=== PATIENT | male | born 1985 | race Two or more races ===

== ENCOUNTER 2020-07-28 07:48 | Observation (INO) ==
[2020-07-28 08:00] VITALS: BMI 64.3
[2020-07-28] MEDS ORDERED: SODIUM CHLORIDE 1,000 ML IV STA ×2 (08:10→09:55)
[2020-07-28] MEDS ORDERED: HUMULIN R IVP STA (08:22)
[2020-07-28 08:30] LABS: BASOPHILS # (AUTO) 0.1 K/uL (0-0.2); BASOPHILS % (AUTO) 0.6 % (0.0-3.0); EOSINOPHILS # (AUTO) 0.2 K/ul (0.0-0.7); HEMATOCRIT 47.7 % (42.0-52.0); HEMOGLOBIN 15.9 g/dl (14.0-18.0); IMMATURE GRANULOCYTE % (AUTO) 0.2 % (0.0-5.0); LYMPHOCYTES % (AUTO) 36.7 (10.0-50.0); MEAN CORPUSCULAR HEMOGLOBIN 26.7 pg (27.0-31.0); MEAN CORPUSCULAR HGB CONC 33.3 (31.8-35.4); MEAN CORPUSCULAR VOLUME 80.2 fl (80.0-94.0); MONOCYTES # (AUTO) 0.7 K/uL (0.4-2.0); MONOCYTES % (AUTO) 5.8 (0-10); NEUTROPHILS # (AUTO) 6.7 K/ul (2.0-6.9); NEUTROPHILS % (AUTO) 54.7 % (42.2-75.2); PLATELET COUNT 293 10^3/uL (140-440); RDW COEFFICIENT OF VARIATION 13.3 % (11.6-14.8); RED BLOOD COUNT 5.95 10^6/ul (4.70-6.10)
[2020-07-28 08:39] LABS: ALBUMIN 4.22 g/dL (3.5-5.0); ALKALINE PHOSPHATASE 104.1 U/L (38-126); ASPARTATE AMINO TRANSFERASE 48.6 U/L (17-59); BLOOD UREA NITROGEN 11.8 mg/dL (9-20); CALCIUM 9.26 mg/dL (8.4-10.2); CARBON DIOXIDE 30.2 mmol/L (22-30.0); CHLORIDE 95.5 mmol/L (98-107); CREATININE 0.49 mg/dL (0.60-1.10); POTASSIUM 4.18 mmol/L (3.5-5.1); SODIUM 133.9 mmol/L (134.5-145); TOTAL PROTEIN 8.18 g/dL (6.3-8.2)
[2020-07-28] MEDS: CATAPRES PO ONE ×2 (08:40→08:47)
[2020-07-28 08:42] LABS: LYMPHOCYTES # (AUTO) 4.5 K/uL (0.60-3.4)
[2020-07-28 08:44] LABS: ALANINE AMINOTRANSFERASE 53.9 U/L (0-50)
[2020-07-28 08:48] LABS: BLOOD ALCOHOL < 10.0 mg/dL (0.0-50.0); GLUCOSE 537.5 mg/dL (74-106)
[2020-07-28] MEDS ORDERED: ROCEPHIN 1 GM/50 ML D5W 1 GM/50 ML BAG IV ONE (09:11)
[2020-07-28 09:17] LABS: BILIRUBIN,URINE Negative (NEGATIVE); CLARITY,URINE Clear (CLEAR); COLOR,URINE Yellow (YELLOW); GLUCOSE, URINE (UA) 2+ (NEGATIVE); KETONES,URINE Negative (NEGATIVE); LEUKOCYTE ESTERASE ,URINE Negative (NEGATIVE); NITRITE,URINE Negative (NEGATIVE); PROTEIN,URINE 1+ (NEGATIVE); URINE, BLOOD Trace-intact (NEGATIVE); UROBILINOGEN,URINE 0.2 (0.2)
[2020-07-28 09:23] LABS: URINE RBC, MICROSCOPIC 0-2 (0-2)
[2020-07-28 09:27] LABS: AMPHETAMINE SCREEN,URINE NEGATIVE (NEGATIVE); BARBITURATE SCREEN,URINE NEGATIVE (NEGATIVE); BENZODIAZEPINES SCREEN,URINE POSITIVE (NEGATIVE); CANNABINOID SCREEN,URINE POSITIVE (NEGATIVE); COCAIN SCREEN,URINE NEGATIVE (NEGATIVE); METHADONE URINE SCREEN NEGATIVE (NEGATIVE); METHAMPHETAMINES SCREEN,URINE NEGATIVE (NEGATIVE); OPIATE SCREEN,URINE NEGATIVE (NEGATIVE); OXYCODONE URINE SCREEN NEGATIVE (NEGATIVE); PHENCYCLIDINE SCREEN,URINE NEGATIVE (NEGATIVE); PROPOXYPHENE URINE SCREEN NEGATIVE (NEGATIVE); TRICYCLIC ANTIDEPRESSANTS URIN NEGATIVE (NEGATIVE)
--- NOTE | 2020-07-28 09:47 | DI ---
EXAM: Chest one view HISTORY: Leukocytosis COMPARISON: None TECHNIQUE: Single view of the chest was performed FINDINGS: Normal heart size. Normal mediastinal contour. Questionable central peribronchial thicken ing bilaterally. No consolidation. No pleural effusion or pneumothorax. No acute osseous abnormali ty. IMPRESSION: Questionable central peribronchial thickening bilaterally, which suggests airways infect ion/inflammation. No consolidation.
[2020-07-28] MEDS ORDERED: LIDOCAINE HCL 1% SDV IM STA (09:55)
[2020-07-28] MEDS ORDERED: ROCEPHIN 1 GM VIAL IM ONE (09:55)
[2020-07-28] MEDS ORDERED: ATROVENT HFA INHALER (PER PUFF-WITH SPACER) IH ONE (10:08)
[2020-07-28] MEDS ORDERED: ZITHROMAX PO ONE (10:08)
[2020-07-28] MEDS ORDERED: VENTOLIN HFA (PER PUFF-WITH SPACER) IH ONE (10:08)
[2020-07-28 10:09] LABS: BORDETELLA PARAPERTUSSIS (PCR) NOT DETECTED (NOT DETECT); BORDETELLA PERTUSSIS (PCR) NOT DETECTED (NOT DETECT); CHLAMYDIA PNEUMONIAE (PCR) NOT DETECTED (NOT DETECT); CORONAVIRUS 229E (PCR) NOT DETECTED (NOT DETECT); CORONAVIRUS HKU1 (PCR) NOT DETECTED (NOT DETECT); CORONAVIRUS NL63 (PCR) NOT DETECTED (NOT DETECT); CORONAVIRUS OC43 (PCR) NOT DETECTED (NOT DETECT); HUMAN METAPNEUMOVIRUS (PCR) NOT DETECTED (NOT DETECT); HUMAN RHINOVIRUS/ENTEROV (PCR) NOT DETECTED (NOT DETECT); INFLUENZA B (PCR) NOT DETECTED (NOT DETECT); MYCOPLASMA PNEUMONIAE (PCR) NOT DETECTED (NOT DETECT); PARAINFLUENZA VIRUS 1 (PCR) NOT DETECTED (NOT DETECT); PARAINFLUENZA VIRUS 2 (PCR) NOT DETECTED (NOT DETECT); PARAINFLUENZA VIRUS 3 (PCR) NOT DETECTED (NOT DETECT); PARAINFLUENZA VIRUS 4 (PCR) NOT DETECTED (NOT DETECT); RESPIRATORY SYNCYTIAL V (PCR) NOT DETECTED (NOT DETECT); SARS_COV_2 (PCR) NOT DETECTED (NOT DETECT)
--- NOTE | 2020-07-28 10:32 | ED.PDOC ---
General ED Provider: Dr. NOHELIA STEWART MD Chief Complaint: Diabetes Stated Complaint: elevated blood sugar x 2 weeks. Time Seen by Provider: 07/28/20 07:56 Mode of Arrival: Walk-In Information Source: Patient Exam Limitations: No limitations Primary Care Provider: ELADIA SANTIZO APRN, FNP- Nursing and Triage Documentation Reviewed and Agree: Yes Does patient meet sepsis criteria?: No System Inflammatory Response Syndrome: Not Applicable Sepsis Protocol: For patient's 13 years and over: Temp is 96.8 and below OR 101 and greater Pulse >90 BPM Resp >20/minute Acutely Altered Mental Status Are patient's symptoms suggestive of a new infection, such as: -Pneumonia -Skin, Soft Tissue -Endocarditis -UTI -Bone, Joint Infection -Implantable Device -Acute Abdominal Infection -Wound Infection -Meningitis -Blood Stream Catheter Infection -Unknown Respiratory Complaint Exam Respiratory Complaint/Exam Onset/Duration: 2 weeks of elevated blood sugar Symptoms Are: Still present Timing: Constant Initial Severity: Mild Current Severity: Moderate Location: Unknown (pt denied acute fever, chills, SOB or chest pain. penile yeast, worsening.) Aggravating: Reports None Alleviating: Reports None Associated Signs and Symptoms: Reports Increased urination History of Healthcare-Acquired Pneumonia: No Cardiac Risk Factors: Reports Smoking and Diabetes Tuberculosis Risk Factors: Reports Smoking Home Oxygen Use: No Recent Stress Test: No Recent Echo/LV Function: No Current Antibiotic Use: No Current Asthma Medication Use: No Respiratory Distress: None Inadequate Respiratory Effort: No Dysphagia Present: No Stridor Present: No JVD Present: No Accessory Muscle Use: No Retractions: Not Present Diminished Breath Sounds: No Sinus Tenderness: None Grunting Respirations: No Kussmaul Respirations: No Differential Diagnoses: Asthma, COPD Exacerbation, Pneumonia, SARS, Bronchitis, Bronchospasm and Diabetic Ketoacidosis Review of Systems Review Of Systems Constitutional: Reports No symptoms Eyes: Reports No symptoms Ears, Nose, Mouth, Throat: Reports No symptoms Respiratory: Reports No symptoms Cardiac: Reports No symptoms GI: Reports Nausea : Reports Burning Musculoskeletal: Reports No symptoms Skin: Reports Other (penile yeast, recurrent) Neurological: Reports No symptoms Endocrine: Reports No symptoms Hematologic/Lymphatic: Reports No symptoms All Other Systems: Reviewed and Negative [facility] Medical History (Updated 07/28/20 @ 10:34 by NOHELIA STEWART MD) Arthritis Asthma Cellulitis Elevated cholesterol Hypertension Type 2 diabetes mellitus Family History Mother Cancer 19 CHILD Asthma Social History Smoking and tobacco status: Current every day smoker Tobacco type: cigarettes Years smoked: 25 Quit status: considering quitting Second hand smoke exposure: Yes Alcohol intake: current Alcohol intake frequency: a few times a month Alcohol type: beer Substance use type: marijuana Mary/islam: NONE Special mary needs: No Agree to transfusion: Yes Adopted: No Caregiver/support person: No Foster care: No Household members: significant other, family and children Housing: house Lives independently: Yes Daycare: no daycare Number of children: 4 Number of grandchildren: 0 Highest education level completed: Associate degree: occupational, technical, vocational program Financial difficulty paying for basics: not very hard service: No Current occupational status: employed 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 Current occupational exposures/hazards: No Pets and animals: Yes Leisure activites: other History of recent travel: Yes (out of state) Sexually active: Yes Do you think of yourself as: straight/heterosexual Current gender identity: male Seatbelt use: always Helmet use: No 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 Water heater temperature set < 120 degrees: Yes Working smoke detector in home: Yes Fire extinguisher in home: No Carbon monoxide detector in home: Yes Firearms in home: No Surgical History Status post tonsillectomy Physical Exam Physical Exam Appearance: Reports Obese Ill-appearing: None Pain Distress: None Eyes: Reports DAMON, EOMI and Conjunctiva clear ENT: Reports Ears normal, Nose normal and Oropharynx normal Neck: Supple Respiratory: Reports Airway patent, Breath sounds equal and Rhonchi Cardiovascular: Reports No rub, No murmur and Tachycardia GI/: Reports Soft, Nontender, No masses, Bowel sounds normal and No Organo megaly Musculoskeletal: Reports Normal strength, ROM intact, No edema and No calf tenderness Skin: Reports Other (moderate penile prepuce and bobo yeast) Neurological: Reports Sensation intact, Motor intact, Reflexes intact, Cranial nerves intact, Alert and Oriented Psychiatric: Reports Affect appropriate and Mood appropriate Interpretation Radiology Interpretation Radiology Interpretation By: Radiologist Radiology Results: Positive Re-Evaluation Re-Evaluation Time of Re-Evaluation: 08:54 Status: Improved Vital Signs Stable: Yes Pain Level: 0 Lungs: Other (rhonchi mild) Skin: Warm and Dry Neuro: Alert and Oriented X3 CV: RRR Critical Care Note Critical Care Note Total Critical Care Time (mins): 30 Course Course Hematology/Chemistry: 07/28/20 08:24 07/28/20 08:24 Orders, Labs, Meds: Lab Review 07/28/20 07/28/20 07/28/20 08:10 08:10 08:24 WBC 12.20 H RBC 5.95 Hgb 15.9 Hct 47.7 MCV 80.2 MCH 26.7 L MCHC 33.3 RDW Coeff of Heather 13.3 Plt Count 293 Immature Gran % (Auto) 0.2 Neut % (Auto) 54.7 Lymph % (Auto) 36.7 [place] % (Auto) 5.8 Eos % (Auto) 2.0 Baso % (Auto) 0.6 Neut # (Auto) 6.7 Lymph # (Auto) 4.5 H [place] # (Auto) 0.7 Eos # (Auto) 0.2 Baso # (Auto) 0.1 Immature Gran # (Auto) 0.0 Sodium Potassium Chloride Carbon Dioxide Anion Gap BUN Creatinine Estimated GFR (MDRD) BUN/Creatinine Ratio Glucose Lactic Acid Calcium Total Bilirubin AST ALT Alkaline Phosphatase Troponin I Total Protein Albumin Globulin Albumin/Globulin Ratio Urine Color Yellow Urine Clarity Clear Urine pH 6.0 Ur Specific [place] 1.020 Urine Protein 1+ H Urine Glucose (UA) 2+ H Urine Ketones Negative Urine Blood Trace-intact H Urine Nitrite Negative Urine Bilirubin Negative Urine Urobilinogen 0.2 Ur Leukocyte Esterase Negative Urine Microscopic RBC 0-2 Ur Squamous Epith Cells 2-5 Urine Opiates Screen Negative Ur Oxycodone Screen Negative Urine Methadone Screen Negative Ur Propoxyphene Screen Negative Ur Barbiturates Screen Negative U Tricyclic Antidepress Negative Ur Phencyclidine Scrn Negative Ur Amphetamine Screen Negative U Methamphetamines Scrn Negative U Benzodiazepines Scrn Positive H Urine Cocaine Screen Negative U Cannabinoids Screen Positive H Plasma/Serum Alcohol Acetone, Qual 07/28/20 07/28/20 07/28/20 08:24 08:24 08:24 WBC RBC Hgb Hct MCV MCH MCHC RDW Coeff of Heather Plt Count Immature Gran % (Auto) Neut % (Auto) Lymph % (Auto) [place] % (Auto) Eos % (Auto) Baso % (Auto) Neut # (Auto) Lymph # (Auto) [place] # (Auto) Eos # (Auto) Baso # (Auto) Immature Gran # (Auto) Sodium 133.9 L Potassium 4.18 Chloride 95.5 L Carbon Dioxide 30.2 H Anion Gap 12.38 BUN 11.8 Creatinine 0.49 L Estimated GFR (MDRD) 192.00 BUN/Creatinine Ratio 24.08 Glucose 537.5 H* Lactic Acid Calcium 9.26 Total Bilirubin 0.50 AST 48.6 ALT 53.9 H Alkaline Phosphatase 104.1 Troponin I < 0.012 Total Protein 8.18 Albumin 4.22 Globulin 3.96 Albumin/Globulin Ratio 1.06 Urine Color Urine Clarity Urine pH Ur Specific [place] Urine Protein Urine Glucose (UA) Urine Ketones Urine Blood Urine Nitrite Urine Bilirubin Urine Urobilinogen Ur Leukocyte Esterase Urine Microscopic RBC Ur Squamous Epith Cells Urine Opiates Screen Ur Oxycodone Screen Urine Methadone Screen Ur Propoxyphene Screen Ur Barbiturates Screen U Tricyclic Antidepress Ur Phencyclidine Scrn Ur Amphetamine Screen U Methamphetamines Scrn U Benzodiazepines Scrn Urine Cocaine Screen U Cannabinoids Screen Plasma/Serum Alcohol < 10.0 Acetone, Qual None 07/28/20 08:32 WBC RBC Hgb Hct MCV MCH MCHC RDW Coeff of Heather Plt Count Immature Gran % (Auto) Neut % (Auto) Lymph % (Auto) [place] % (Auto) Eos % (Auto) Baso % (Auto) Neut # (Auto) Lymph # (Auto) [place] # (Auto) Eos # (Auto) Baso # (Auto) Immature Gran # (Auto) Sodium Potassium Chloride Carbon Dioxide Anion Gap BUN Creatinine Estimated GFR (MDRD) BUN/Creatinine Ratio Glucose Lactic Acid 3.61 H Calcium Total Bilirubin AST ALT Alkaline Phosphatase Troponin I Total Protein Albumin Globulin Albumin/Globulin Ratio Urine Color Urine Clarity Urine pH Ur Specific [place] Urine Protein Urine Glucose (UA) Urine Ketones Urine Blood Urine Nitrite Urine Bilirubin Urine Urobilinogen Ur Leukocyte Esterase Urine Microscopic RBC Ur Squamous Epith Cells Urine Opiates Screen Ur Oxycodone Screen Urine Methadone Screen Ur Propoxyphene Screen Ur Barbiturates Screen U Tricyclic Antidepress Ur Phencyclidine Scrn Ur Amphetamine Screen U Methamphetamines Scrn U Benzodiazepines Scrn Urine Cocaine Screen U Cannabinoids Screen Plasma/Serum Alcohol Acetone, Qual Orders Category Date Time Status EKG-(ED ONLY) Stat CARDIO 07/28/20 09:11 Completed METERED DOSE INHALATION Routine CARDIO 07/28/20 10:09 Ordered ED IV/MEDIPORT/POWERPORT .ONCE EMERGENCY 07/28/20 08:10 Active ACETONE, QUALITATIVE Stat LAB 07/28/20 08:24 Completed BLOOD ALCOHOL Stat LAB 07/28/20 08:24 Completed BLOOD CULTURE (ED ONLY) Stat LAB 07/28/20 10:03 Ordered CBC W/ AUTO DIFF Stat LAB 07/28/20 08:24 Completed COMPREHENSIVE METABOLIC PANEL Stat LAB 07/28/20 08:24 Completed DRUG SCREEN, URINE, RAPID Stat LAB 07/28/20 08:10 Completed LACTIC ACID Stat LAB 07/28/20 08:32 Completed RESPIRATORY PANEL 2.1 (PCR) Stat LAB 07/28/20 10:03 Received TROPONIN I Stat LAB 07/28/20 08:24 Completed URINALYSIS C & S IF INDICATED Stat LAB 07/28/20 08:10 Completed 0.9 % Sodium Chloride [Saline Flush] MEDS 07/28/20 08:10 Active 1 syr IVF PRN PRN Albuterol Inhaler(with Spacer) [Ventolin Hfa (Per Puff- MEDS 07/28/20 10:08 Discontinued with Spacer)] 2 puff IH ONCE ONE Azithromycin [Zithromax] MEDS 07/28/20 10:08 Discontinued 500 mg PO ONCE ONE Ceftriaxone 1 gm Vial [Rocephin 1 gm Vial] MEDS 07/28/20 09:55 Discontinued 1 gm IM ONCE ONE Clonidine HCl [Catapres] MEDS 07/28/20 08:24 Discontinued 0.2 mg PO ONCE ONE Insulin Regular, Human [Humulin R] MEDS 07/28/20 08:22 Discontinued 19 unit IVP ONCE STA Ipratropium Inhaler(Spacer) [Atrovent Hfa Inhaler (Per MEDS 07/28/20 10:08 Discontinued Puff-with Spacer)] 2 puff IH ONCE ONE Lidocaine HCl/Pf [Lidocaine HCl 1% Sdv] MEDS 07/28/20 09:55 Discontinued 2.1 ml IM ONCE STA Sodium Chloride 0.9% [Sodium Chloride] 1,000 ml MEDS 07/28/20 08:10 Discontinued IV BOLUS Sodium Chloride 0.9% [Sodium Chloride] 1,000 ml MEDS 07/28/20 09:55 Active IV BOLUS CHEST, 1V AP ONLY Stat RADS 07/28/20 09:11 Completed Medications Generic Name Dose Route Start Last Admin Trade Name Freshamir PRN Reason Stop Dose Admin Sodium Chloride 1,000 mls @ 1,000 mls/hr 07/28/20 09:55 Sodium Chloride IV 07/28/20 10:54 BOLUS STA Sodium Chloride 1 syr 07/28/20 08:10 0.9% Sodium Chloride 10 Ml Disp.Syrin IVF PRN PRN To flush IV Discontinued Medications Generic Name Dose Route Start Last Admin Trade Name Freq PRN Reason Stop Dose Admin Albuterol Sulfate 2 puff 07/28/20 10:08 Albuterol Sulfate (Ventolin Hfa) 18 Gm 1 Puff With Spacer IH 07/28/20 10:09 ONCE ONE Azithromycin 500 mg 07/28/20 10:08 Azithromycin 250 Mg Tablet PO 07/28/20 10:09 ONCE ONE Ceftriaxone Sodium 1 gm 07/28/20 09:55 Ceftriaxone 1 Gm Vial 1 Gm Vial IM 07/28/20 09:56 ONCE ONE Clonidine 0.2 mg 07/28/20 08:24 07/28/20 08:47 Clonidine Hcl 0.1 Mg Tablet PO 07/28/20 08:25 Not Given ONCE ONE Sodium Chloride 1,000 mls @ 1,000 mls/hr 07/28/20 08:10 07/28/20 08:43 Sodium Chloride IV 07/28/20 09:09 1,000 mls/hr BOLUS STA Administration Insulin Human Regular 19 unit 07/28/20 08:22 07/28/20 08:40 Insulin Regular, Human 100 Unit/Ml (3ml) Vial 0.1 unit/kg (19 unit) 07/28/20 08:23 19 unit IVP Administration ONCE STA Ipratropium [place] 2 puff 07/28/20 10:08 Ipratropium [place] 12.9 Gm Hfa Inhaler Per Puff With Spacer IH 07/28/20 10:09 ONCE ONE Lidocaine HCl 2.1 ml 07/28/20 09:55 Lidocaine Hcl/Pf 1% 5 Ml Vial IM 07/28/20 09:56 ONCE STA Vital Signs: Temp Pulse Resp BP Pulse Ox 07/28/20 08:44 126/83 07/28/20 07:54 96.8 F L 90 20 163/106 H 92 L Discharge Plan Discharge Patient Disposition: PLACED OBSERVATION Discharge Problem: Hyperglycemia, Yeast infection, Bronchitis Prescriptions: No Action (DME) blood-glucose meter 1 EACH misc 1 ea MC ONCE 1 Days Qty: 1 RF: 0 (DME) Blood Glucose Test 1 EACH strip 1 ea MC DAILY 30 Days Qty: 30 RF: 5 lancets [TRUEplus Lancets] 33 gauge misc See Rx Instructions .ROUTE .COMPLEX Qty: 100 RF: 0 (DME) pen needle, diabetic [BD Ultra-Fine Orig Pen Needle] 29 gauge x 1/2" needle 1 ea MC daily 32G 4mm 30 Days Qty: 100 RF: 5 insulin lispro [Humalog KwikPen Insulin] 100 unit/mL insulin pen See Rx Instructions .ROUTE .COMPLEX Qty: 15 RF: 0 imiquimod 5 % cream in packet 1 applic TOPICAL DAILY RF: 0 hydrochlorothiazide 25 mg tablet 25 mg PO QDAY Qty: 90 RF: 6 Lantus Solostar U-100 Insulin 100 unit/mL (3 mL) insulin pen 90 unit subcut nightly 30 Days Qty: 30 RF: 5 (DME) True Metrix Glucose Test Strip Strip See Rx Instructions .ROUTE .MEDSUPPLY Qty: 200 RF: 11 (DME) lancets [BD Ultra Fine Lancets] 33 gauge misc See Rx Instructions .ROUTE .MEDSUPPLY Qty: 100 RF: 6 metformin 1,000 mg tablet 1,000 mg PO BID Qty: 60 RF: 6 albuterol sulfate [Ventolin HFA] 90 mcg/actuation HFA aerosol inhaler 2 puff IH Q4-6H PRN (Reason: shortness of breath or wheezing) Qty: 18 RF: 6 lisinopril 40 mg tablet 40 mg PO QDAY Qty: 90 RF: 6 ibuprofen 800 mg tablet 800 mg PO TID PRN (Reason: pain) Qty: 90 RF: 2 ED Provider: NOHELIA STEWART Condition: Serious Physician Progress Note: []Pt was d/w Dr Del Castillo: for Observation. See admission orders.
[2020-07-28] MEDS ORDERED: DIFLUCAN PO ONE (10:45)
[2020-07-28] MEDS ORDERED: MOTRIN PO PRN (10:49)
[2020-07-28] MEDS: SODIUM CHLORIDE 1,000 ML IV SCH ×2 (10:54→20:44)
[2020-07-28] MEDS ORDERED: VENTOLIN HFA (PER PUFF-WITH SPACER) IH SCH (11:00)
[2020-07-28 11:05] LABS: ADENOVIRUS (PCR) NOT DETECTED (NOT DETECT)
--- NOTE | 2020-07-28 11:56 | PCM ---
Chief Complaint Chief Complaint: Elevated blood sugars, not feeling well over 2 weeks. History of Present Illness History of Present Illness: 35 yo male presented to ED 07/28/20 at 0756 with c/o elevated BG x 2 weeks. Walked into ED w/o limitations. Vitals temp 96.8, pulse 90, rr 20, bp 163/106 and O2 92% on RA. Repeat vitals at 0844 BP 126/83 and normal. ER noted that in addition to glucose, he has had some respiratory issues as well. Constant blood sugars elevated, mild to moderate, no acute fever/chills/SOA/Chest pain. He has reported penile rash that has been worsening over the last 1 week. No agg/ameliorating factors. increased urination noted. No recent abx use. Ddx considered asthma/copd exacerbation/CAP/SARS-COVID/Bronchitis and lesser DKA. ROS reviewed from ED provider, pertinent + include nausea, burning in epigastric and abdominal region, penile yeast. PFSH reviewed with history of arthritis, asthma, cellulitis, elevated cholesterol, HTN, DM2 IDDM, extreme obesity with BMI 64.4. Current every day smoker of tobacco and marijuana. May consider quitting in future. 4 children. Works, some recent travel to [place] for job. Exam in ED noted some rhonchi. Penile rash noted. Balanitis present. Labs showed WBC 12.20, hgb 15.9, hct 47.7, plt 293. Sodium 133.9, K+ 4.18, CL 95.5, co2 30.2, bun 11.8, cr 0.49, glucose 537.5. Lymphocytes elevated. Else normal differential on CBC. UA showed SG 1.020, protien 1+, glucose 2+, ketones negative, blood trace, micro rbc 0-2, squam 2-5. UDS + for Benzo and cannabinoids. Corrected [id number] Sarmiento/144 Joceline. Calcium was 9.26, AST 48.6, alt 53.9, Alk phos normal 104.1. Trop <0.012, alb 4.22. ETOH negative. Acetone negative. Lactic acid is elevated at 3.61. Biofire returned handy negative. BC were obtained. SIRS criteria were technically not met with only abnl finding was the WBC >12. I questioned the temp, it was recorded as inaccurate and they were rechecking. Repeat BP was reviewed and okay. Dr. Riggins contacted me this am and we agreed to observation. He noted that the patient has not been taking insulin. He has no hypoxia now. O2 in ED was reported at >96%. CXR showed IMPRESSION: Questionable central peribronchial thickening bilaterally, which suggests airways infection/inflammation. No consolidation. [place] body weight 146 Adjusted body weight 252 Fluid rate: 106-155ml/hr - Will run at midpoint at 125ml/hour. REVIEW OF SYMPTOMS: (Positives bolded) General: weight loss, fever, chills, night sweats, fatigue, appetite loss HEENT: blurry vision, eye pain, eye discharge, dry eyes, decreased vision, sore throat tinnitus, bloody nose, hearin gloss, sinus pain/pressure, ear pain/pressure. Respiratory: shortness of breath, cough, hemoptysis, wheezing, pleurisy, Cardiovascular: chest pain, PND, palpitation, edema, orthopnea, syncope, swelling of extremities Gastro: Nausea, vomiting, diarrhea, hematemesis, abdominal pain, constipation Genito: hematuria, dysuria, glycosuria, hesitancy, frequency, incontinence, Penis rash [place]: Arthralgia, myalgia, muscle weakness, joint swelling, NSAID use Skin: rash, pruritis, sores, nail changes, skin thickening, change in wart/mole, itching, rash, new lesions, pruritus, nail changes Neuro: Migraine, numbness, ataxia, tremor, vertigo, weakness, memory loss, Irritability, dizziness Endocrine: excessive thirst, polyuria, cold intolerance, heat intolerance, goiter, Hyperglycemia Psychiatric: depression, anxiety, anti-depressants, alcohol abuse, drug abuse, insomnia, change in sleep pattern and mood changes Heme/lymph: easy bruising, bleeding gums, blood clots, swollen glands, lymphedema, Allergic/immune: allergic rhinitis, hay fever, asthma, hives Vital Signs Temp Pulse Resp BP Pulse Ox 07/28/20 10:56 149/105 H 07/28/20 09:15 134/93 H 07/28/20 08:44 126/83 07/28/20 08:30 126/83 07/28/20 07:54 96.8 F L 90 20 163/106 H 92 L Constitutional: Appearance-No acute distress, Consistent with stated age. Orientation- Oriented x 3, alertGait-Normal pace, normal arm movement. Build and Nutrition-[morbid obesity] General- Patient is pleasant and cooperative with the interview and exam. Integumentary: General-No rashes, ulcers or lesions. Palpation- Normal skin moisture/turgor. Skin is warm to touch, appropriate. Capillary refill is normal bilateral Upper and lower extremity. No rash in the under skin follds of abdomen, axilla or under breast tissue. Scar along the anterior blunt hyperpigmented nodule/nummular lesion. Chronic. Head/Neck: Head- normocephalic and atraumatic. Neck- without visible/palpable lumps or pulsations. Palpation- No bony tenderness about head/neck along frontal, occipital, temporal, parietal, mastoid, jawline, zygoma, orbit or any other location. NO temporal artery tenderness. No TMJ tenderness. Neck Supple. Thyroid-No thyromegaly, no nodules Eye: Bilaterally PERRLA, EOMI. No discharge. Upper and lower eyelids are normal. Sclera/conjunctiva normal without discharge. Cornea is normal and clear. Lens is normal. Eyeball appears normal. No ciliary flushing, no conjunctival injection. ENMT: Pinna- normal without tenderness or erythema. External auditory canal Left- normal without erythema or discharge, no excessive cerumen. External auditory canal Right-normal without erythema or discharge, no excessive cerumen. TM left- Ely/pearly, normal light reflex and anatomy TM Right- Ely/pearly, normal light reflex and anatomy Hearing Assessment-normal to conversational speech. Nose and sinus- No sinus tenderness along frontal/maxillary region. E xternal appearance normal and midline. Nares- bilateral quiet airflow, no discharge. Nasal mucosa- No bleeding noted and no ulcerations observed. [place], moist. Turbinates non boggy. Lips- normal color, moist without cracks/lesions Oral Cavity/Palate- hard/soft palate intact without lesions, oral mucosa pink and moist. Tongue normal midline. Oropharynx- no pharyngeal erythema, Uvula midline. No post nasal drip. No exudate. Salivary glands- Non tender to palpation CHEST/LUNG: Inspection- symmetric chest wall no pectus deformity. Normal effort, no distress, no use of accessory muscles. Palpation- nontender sternum, ribline. No abnormal pulsations. Auscultation- Breath sounds coarse throughout all lung andrade. Tracheal sounds, bronchial sounds overlying sternum, Bronchovessicular sounds between scapulae posteriorly, vessicular breath sounds heard throughout periphery coarse and diminished. Adventitious sounds- Scattered wheezes, no rales, Scattered rhonchi. CARDIOVASCULAR: Carotid artery- normal, no bruits or abnormal pulsations. Jugular vein- no pulsations. Palpation/Percussion- Normal PMI, no palpable thrill Auscultation- Regular rate and rhythm. No murmur noted in sitting, supine positions. Extremities- no digital clubbing, cyanosis, edema, increased warmth. ABDOMEN: Inspection- normal and no visible pulsations. Normal contour. Auscultation- Bowel sounds normal, no abdominal bruits. Palpation/Percussion- soft, non-tender, no rebound tenderness, no rigidity (guarding), no jar tenderness, no masses. Liver-no hepatomegaly, Spleen no splenomegaly, Hernias- none. Rectal not examined. Peripheral Vascular: Upper extremity Left- Normal temperature with pink nailbeds and no ulcerations. Upper extremity Right- Normal temperature with pink nailbeds and no ulcerations. Lower extremity- Normal temperature with pink nailbeds and no ulcerations. DP pulses 2+ bilaterally. Pedal hair intact. Normal capillary refill. Edema- No edema. Musculoskeletal: Generalized-No generalized swelling or edema of extremities, no digital clubbing or cyanosis, neurovascularly intact all four extremities. Upper extremity- Symmetrical posture. No visible deformity. Normal sensation along medial and lateral upper extremity proximally and distally. NO tenderness overlying shoulder, lateral/medial epicondyle. Poultry [place]beaker 5/5 and strength 5/5 bilateral UE. Elbow palpated, no tenderness overlying olecranon. Normal supination, pronation to active/passive ROM and to resisted rotation. Bicep insertion/tricep insertion appear normal without obvious pathology. Rotator cuff evaluated and intact. Normal wrist ROM bilaterally. Normal hand movement, intrinsic muscles of hands normal. No tenderness to palpation of hands/wrists/elbows. Lower extremity- Hip: Not tender to palpation, no pain, no swelling, edema or erythema of surrounding tissue, normal strength and tone. Normal appearing hip ROM bilaterally without pain. Knee: Knee ROM normal. No tenderness overlying trochanters, no tenderness about patella, quad tendon, patellar tendon. No tenderness at tibial tuberosity. Ankle: normal ROM not tender to palpation along medial/lateral malleolus. Foot: Normal movement of toes, no tenderness bilateral feet/toes. Normal foot type. Spine/Ribs- No deformities, masses or tenderness, no known fractures, normal strength, Normal ROM. Normal stability No tenderness along C/T/L spine. Normal appearing ROM about spine. : Balanitis. Scrotum without abnl findings. Testicles non tender symmetrcial. White thick discharge in skin folds. Penis is retracted. Prominent suprapubic fat pad. No rash in abdominal fold. Neurological: General- Moves all 4 extremities symmetrically. Symmetrical face and body posture. Cranial nerves- individually evaluated II-XII and intact. PERRLA, Normal EOMI, visual/special senses appear intact, Face is symmetrical and normal sensation/movement, normal tongue, normal strength/posture of neck musculature. Reflexes- intact with DTR 2+ patellar, Achilles, bicep, brachial, tricep. Ankle clonus normal with 2 beats. Strength- 5/5 bilateral UE and LE. Soft touch- intact bilateral UE and LE. Temperature sensation- intact bilateral UE and LE. []Cerebellar testing-Rapid alternating movements intact. Heel blunt intact. Able to walk normal gait, normal heel toe walking. Balance- Romberg intact. Normal Walking, heel toe walking, tip toe and heel walking normal. Neuropsych: Oriented- Person, place, time. (AAOx3), Mood/affect- normal and congruent. Able to articulate well. Speech-Normal speech, normal rate, normal tone, normal use of language, volume and coherence. Thought content- normal with ability to perform basic computations and apply abstract thought/reason. Associations- intact, no SI/HI, no hallucinations, delusions, obsessions. Judgment/insight- Appropriate. Memory-Recall intact, remote and recent memory intact. Knowledge- Age appropriate fund of knowledge, concentration and attention span normal. Lymphatic: Head/Neck- normal size and non tender to palpation. Axillary- normal size and non tender to palpation. Femoral and Inguinal- normal size and non tender to palpation. Allergies Allergies Allergy/AdvReac Type Severity Reaction Status Date / Time No Known Allergies Allergy Verified 07/28/20 08:03 [facility] Medical History (Updated 07/28/20 @ 17:38 by ARNAV MARADIAGA MD) Anterolisthesis Arthritis Asthma Condyloma acuminatum DM2 (diabetes mellitus, type 2) Facet arthropathy, lumbar Genital warts Hypertension Lumbar stenosis Mixed hyperlipidemia Morbid obesity with BMI of 60.0-69.9, adult Smokes 1 pack of cigarettes per day Type 2 diabetes mellitus Surgical History (Updated 07/28/20 @ 12:30 by KEYSHAWN CLAUDIO, RN) No history of previous surgery Status post tonsillectomy Family History Mother Cancer 19 CHILD Asthma Social History (Updated 07/28/20 @ 12:31 by KEYSHAWN CLAUDIO, RN) Smoking and tobacco status: Current every day smoker Tobacco type: cigarettes Years smoked: 25 Tobacco: How many years used: 24 Quit status: considering quitting Second hand smoke exposure: Yes Alcohol intake: current Alcohol intake frequency: a few times a month Alcohol type: beer Substance use type: marijuana Mary/scientology: NONE Special mary needs: No Agree to transfusion: Yes Adopted: No Caregiver/support person: No Foster care: No Household members: significant other, family and children Housing: house Lives independently: Yes Daycare: no daycare Number of children: 4 Number of grandchildren: 0 Highest education level completed: Associate degree: occupational, technical, vocational program Financial difficulty paying for basics: not very hard service: No Current occupational status: employed 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 Current occupational exposures/hazards: No Pets and animals: Yes Leisure activites: other History of recent travel: Yes (out of state) Sexually active: Yes Do you think of yourself as: straight/heterosexual Current gender identity: male Seatbelt use: always Helmet use: No 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 Water heater temperature set < 120 degrees: Yes Working smoke detector in home: Yes Fire extinguisher in home: No Carbon monoxide detector in home: Yes Firearms in home: No Medications Medications: Medications Generic Name Dose Route Start Last Admin Trade Name Freq PRN Reason Stop Dose Admin Albuterol Sulfate 2 puff 07/28/20 14:00 Albuterol Sulfate (Ventolin Hfa) 18 Gm 1 Puff With Spacer IH RTQID LAURY Azithromycin 500 mg 07/29/20 09:00 Azithromycin 250 Mg Tablet PO 07/30/20 10:00 DAILY LAURY Hydrochlorothiazide 25 mg 07/29/20 09:00 Hydrochlorothiazide 25 Mg Tablet PO DAILY LAURY Sodium Chloride 1,000 mls @ 125 mls/hr 07/28/20 11:00 07/28/20 10:54 Sodium Chloride IV 125 mls/hr .Q8H LAURY Administration CEFTRIAXONE/D5W 1 GM PREMIX 1 gm in 50 mls @ 75 mls/hr 07/29/20 09:00 Rocephin 1 Gm/50 Ml D5w IV 07/30/20 10:00 DAILY LAURY Ibuprofen 800 mg 07/28/20 10:49 Ibuprofen 400 Mg Tablet PO TID PRN Pain Insulin Glargine 90 unit 07/28/20 21:00 Insulin Glargine,Hum.Rec.Anlog 100 Units/Ml SUBCUT BEDTIME LAURY Insulin Human Regular 0 unit 07/28/20 10:40 Insulin Regular, Human 100 Unit/Ml (3ml) Vial SUBCUT PRN PRN Hyperglycemia Protocol Ipratropium [place] 2 puff 07/28/20 14:00 Ipratropium [place] 12.9 Gm Hfa Inhaler Per Puff With Spacer IH RTQID [facility] Lisinopril 40 mg 07/29/20 09:00 Lisinopril 40 Mg Tablet PO DAILY [facility] Metformin HCl 1,000 mg 07/28/20 17:00 Metformin Hcl 500 Mg Tablet PO BIDWM [facility] Non-Formulary Medication 1 applic 07/29/20 09:00 Imiquimod TP DAILY [facility] Sodium Chloride 1 syr 07/28/20 08:10 0.9% Sodium Chloride 10 Ml Disp.Syrin IVF PRN PRN To flush IV Body Composition Height: 5 ft 7 in Weight: 411 lb 2 oz Body Mass Index (BMI): 64.3 Vital Signs Temperature: 96.8 F Pulse Rate: 90 Respiratory Rate: 20 Blood Pressure: 149/105 O2 Sat by Pulse Oximetry: 92 Lab/Tests/Diagnostic Imaging Lab/Tests/Diagnostic Imaging: Lab Review 07/28/20 07/28/20 07/28/20 08:10 08:10 08:24 WBC 12.20 H RBC 5.95 Hgb 15.9 Hct 47.7 MCV 80.2 MCH 26.7 L MCHC 33.3 RDW Coeff of Heather 13.3 Plt Count 293 Immature Gran % (Auto) 0.2 Neut % (Auto) 54.7 Lymph % (Auto) 36.7 [place] % (Auto) 5.8 Eos % (Auto) 2.0 Baso % (Auto) 0.6 Neut # (Auto) 6.7 Lymph # (Auto) 4.5 H [place] # (Auto) 0.7 Eos # (Auto) 0.2 Baso # (Auto) 0.1 Immature Gran # (Auto) 0.0 Sodium Potassium Chloride Carbon Dioxide Anion Gap BUN Creatinine Estimated GFR (MDRD) BUN/Creatinine Ratio Glucose Lactic Acid Calcium Total Bilirubin AST ALT Alkaline Phosphatase Troponin I Total Protein Albumin Globulin Albumin/Globulin Ratio Urine Color Yellow Urine Clarity Clear Urine pH 6.0 Ur Specific [place] 1.020 Urine Protein 1+ H Urine Glucose (UA) 2+ H Urine Ketones Negative Urine Blood Trace-intact H Urine Nitrite Negative Urine Bilirubin Negative Urine Urobilinogen 0.2 Ur Leukocyte Esterase Negative Urine Microscopic RBC 0-2 Ur Squamous Epith Cells 2-5 Urine Opiates Screen Negative Ur Oxycodone Screen Negative Urine Methadone Screen Negative Ur Propoxyphene Screen Negative Ur Barbiturates Screen Negative U Tricyclic Antidepress Negative Ur Phencyclidine Scrn Negative Ur Amphetamine Screen Negative U Methamphetamines Scrn Negative U Benzodiazepines Scrn Positive H Urine Cocaine Screen Negative U Cannabinoids Screen Positive H Plasma/Serum Alcohol Acetone, Qual Adenovirus (PCR) B. pertussis DNA (PCR) B.parapertussis DNA PCR C. pneumoniae DNA (PCR) Coronavirus OC43 (PCR) Coronavirus HKU1 (PCR) Coronavirus 229E (PCR) Coronavirus NL63 (PCR) Human Metapneumovir PCR Influenza Type A (PCR) Influenza B (RT-PCR) M. pneumoniae (PCR) Parainfluenza 1 (PCR) Parainfluenza 2 (PCR) Parainfluenza 3 (PCR) Parainfluenza 4 (PCR) RSV (PCR) Entero/Rhino (PCR) SARS-CoV-2 (PCR) 07/28/20 07/28/20 07/28/20 08:24 08:24 08:24 WBC RBC Hgb Hct MCV MCH MCHC RDW Coeff of Heather Plt Count Immature Gran % (Auto) Neut % (Auto) Lymph % (Auto) [place] % (Auto) Eos % (Auto) Baso % (Auto) Neut # (Auto) Lymph # (Auto) [place] # (Auto) Eos # (Auto) Baso # (Auto) Immature Gran # (Auto) Sodium 133.9 L Potassium 4.18 Chloride 95.5 L Carbon Dioxide 30.2 H Anion Gap 12.38 BUN 11.8 Creatinine 0.49 L Estimated GFR (MDRD) 192.00 BUN/Creatinine Ratio 24.08 Glucose 537.5 H* Lactic Acid Calcium 9.26 Total Bilirubin 0.50 AST 48.6 ALT 53.9 H Alkaline Phosphatase 104.1 Troponin I < 0.012 Total Protein 8.18 Albumin 4.22 Globulin 3.96 Albumin/Globulin Ratio 1.06 Urine Color Urine Clarity Urine pH Ur Specific [place] Urine Protein Urine Glucose (UA) Urine Ketones Urine Blood Urine Nitrite Urine Bilirubin Urine Urobilinogen Ur Leukocyte Esterase Urine Microscopic RBC Ur Squamous Epith Cells Urine Opiates Screen Ur Oxycodone Screen Urine Methadone Screen Ur Propoxyphene Screen Ur Barbiturates Screen U Tricyclic Antidepress Ur Phencyclidine Scrn Ur Amphetamine Screen U Methamphetamines Scrn U Benzodiazepines Scrn Urine Cocaine Screen U Cannabinoids Screen Plasma/Serum Alcohol < 10.0 Acetone, Qual None Adenovirus (PCR) B. pertussis DNA (PCR) B.parapertussis DNA PCR C. pneumoniae DNA (PCR) Coronavirus OC43 (PCR) Coronavirus HKU1 (PCR) Coronavirus 229E (PCR) Coronavirus NL63 (PCR) Human Metapneumovir PCR Influenza Type A (PCR) Influenza B (RT-PCR) M. pneumoniae (PCR) Parainfluenza 1 (PCR) Parainfluenza 2 (PCR) Parainfluenza 3 (PCR) Parainfluenza 4 (PCR) RSV (PCR) Entero/Rhino (PCR) SARS-CoV-2 (PCR) 07/28/20 07/28/20 08:32 10:03 WBC RBC Hgb Hct MCV MCH MCHC RDW Coeff of Heather Plt Count Immature Gran % (Auto) Neut % (Auto) Lymph % (Auto) [place] % (Auto) Eos % (Auto) Baso % (Auto) Neut # (Auto) Lymph # (Auto) [place] # (Auto) Eos # (Auto) Baso # (Auto) Immature Gran # (Auto) Sodium Potassium Chloride Carbon Dioxide Anion Gap BUN Creatinine Estimated GFR (MDRD) BUN/Creatinine Ratio Glucose Lactic Acid 3.61 H Calcium Total Bilirubin AST ALT Alkaline Phosphatase Troponin I Total Protein Albumin Globulin Albumin/Globulin Ratio Urine Color Urine Clarity Urine pH Ur Specific [place] Urine Protein Urine Glucose (UA) Urine Ketones Urine Blood Urine Nitrite Urine Bilirubin Urine Urobilinogen Ur Leukocyte Esterase Urine Microscopic RBC Ur Squamous Epith Cells Urine Opiates Screen Ur Oxycodone Screen Urine Methadone Screen Ur Propoxyphene Screen Ur Barbiturates Screen U Tricyclic Antidepress Ur Phencyclidine Scrn Ur Amphetamine Screen U Methamphetamines Scrn U Benzodiazepines Scrn Urine Cocaine Screen U Cannabinoids Screen Plasma/Serum Alcohol Acetone, Qual Adenovirus (PCR) Not detected B. pertussis DNA (PCR) Not detected B.parapertussis DNA PCR Not detected C. pneumoniae DNA (PCR) Not detected Coronavirus OC43 (PCR) Not detected Coronavirus HKU1 (PCR) Not detected Coronavirus 229E (PCR) Not detected Coronavirus NL63 (PCR) Not detected Human Metapneumovir PCR Not detected Influenza Type A (PCR) Not detected Influenza B (RT-PCR) Not detected M. pneumoniae (PCR) Not detected Parainfluenza 1 (PCR) Not detected Parainfluenza 2 (PCR) Not detected Parainfluenza 3 (PCR) Not detected Parainfluenza 4 (PCR) Not detected RSV (PCR) Not detected Entero/Rhino (PCR) Not detected SARS-CoV-2 (PCR) Not detected Orders Category Date Time Status EKG-(ED ONLY) Stat CARDIO 07/28/20 09:11 Completed METERED DOSE INHALATION Routine CARDIO 07/28/20 10:09 Completed METERED DOSE INHALATION Routine CARDIO 07/28/20 10:47 Ordered OXYGEN Routine CARDIO 07/28/20 10:40 Ordered ACTIVITY .Up ad Sheri CARE 07/28/20 10:35 Active GIVE HS SNACK 2100 CARE 07/28/20 10:40 Active INTAKE & OUTPUT Q8HR CARE 07/28/20 10:35 Active VITAL SIGNS Q8HR CARE 07/28/20 10:35 Active ADA 2200 JERONIMO DIET DIETARY 07/28/20 Lunch Ordered HS SNACK DIETARY 07/28/20 Dinner Ordered ED IV/MEDIPORT/POWERPORT .ONCE EMERGENCY 07/28/20 08:10 Active ACETONE, QUALITATIVE Stat LAB 07/28/20 08:24 Completed BLOOD ALCOHOL Stat LAB 07/28/20 08:24 Completed BLOOD CULTURE (ED ONLY) Stat LAB 07/28/20 10:24 Received CBC W/ AUTO DIFF DAILY@0600 LAB 07/29/20 06:00 Ordered CBC W/ AUTO DIFF DAILY@0600 LAB 07/30/20 06:00 Ordered CBC W/ AUTO DIFF Stat LAB 07/28/20 08:24 Completed COMPREHENSIVE METABOLIC PANEL DAILY@0600 LAB 07/29/20 06:00 Ordered COMPREHENSIVE METABOLIC PANEL DAILY@0600 LAB 07/30/20 06:00 Ordered COMPREHENSIVE METABOLIC PANEL Stat LAB 07/28/20 08:24 Completed DRUG SCREEN, URINE, RAPID Stat LAB 07/28/20 08:10 Completed LACTIC ACID Stat LAB 07/28/20 08:32 Completed RESPIRATORY PANEL 2.1 (PCR) Stat LAB 07/28/20 10:03 Completed TROPONIN I Stat LAB 07/28/20 08:24 Completed URINALYSIS C & S IF INDICATED Stat LAB 07/28/20 08:10 Completed 0.9 % Sodium Chloride [Saline Flush] MEDS 07/28/20 08:10 Active 1 syr IVF PRN PRN Albuterol Inhaler(with Spacer) [Ventolin Hfa (Per Puff- MEDS 07/28/20 10:08 D iscontinued with Spacer)] 2 puff IH ONCE ONE Albuterol Inhaler(with Spacer) [Ventolin Hfa (Per Puff- MEDS 07/28/20 11:00 Discontinued with Spacer)] 2 puff IH Q6H Albuterol Inhaler(with Spacer) [Ventolin Hfa (Per Puff- MEDS 07/28/20 14:00 Active with Spacer)] 2 puff IH RTQID Azithromycin [Zithromax] MEDS 07/29/20 09:00 Active 500 mg PO DAILY Azithromycin [Zithromax] MEDS 07/28/20 10:08 Discontinued 500 mg PO ONCE ONE Ceftriaxone 1 gm Vial [Rocephin 1 gm Vial] MEDS 07/28/20 09:55 Discontinued 1 gm IM ONCE ONE Ceftriaxone/D5w 1 gm Premix [Rocephin 1 gm/50 ml D5w] MEDS 07/29/20 09:00 Active 1 gm in 50 ml IV DAILY Clonidine HCl [Catapres] MEDS 07/28/20 08:24 Discontinued 0.2 mg PO ONCE ONE Fluconazole [Diflucan] MEDS 07/28/20 10:45 Discontinued 150 mg PO ONCE ONE Hydrochlorothiazide MEDS 07/29/20 09:00 Active 25 mg PO DAILY Ibuprofen [Motrin] MEDS 07/28/20 10:49 Active 800 mg PO TID PRN Insulin Glargine,Hum.rec.anlog [Lantus] MEDS 07/28/20 21:00 Active 90 unit SUBCUT BEDTIME Insulin Regular, Human [Humulin R] MEDS 07/28/20 08:22 Discontinued 19 unit IVP ONCE STA Insulin Regular, Human [Humulin R] MEDS 07/28/20 10:40 Active See Protocol SUBCUT PRN PRN Ipratropium Inhaler(Spacer) [Atrovent Hfa Inhaler (Per MEDS 07/28/20 10:08 Discontinued Puff-with Spacer)] 2 puff IH ONCE ONE Ipratropium Inhaler(Spacer) [Atrovent Hfa Inhaler (Per MEDS 07/28/20 12:00 Discontinued Puff-with Spacer)] 2 puff IH RTQ6H Ipratropium Inhaler(Spacer) [Atrovent Hfa Inhaler (Per MEDS 07/28/20 14:00 Active Puff-with Spacer)] 2 puff IH RTQID Lidocaine HCl/Pf [Lidocaine HCl 1% Sdv] MEDS 07/28/20 09:55 Discontinued 2.1 ml IM ONCE STA Lisinopril [Zestril] MEDS 07/29/20 09:00 Active 40 mg PO DAILY Metformin HCl [Glucophage] MEDS 07/28/20 17:00 Active 1,000 mg PO BIDWM Sodium Chloride 0.9% [Sodium Chloride] 1,000 ml MEDS 07/28/20 11:00 Active IV 125 mls/hr Sodium Chloride 0.9% [Sodium Chloride] 1,000 ml MEDS 07/28/20 08:10 Discontinued IV BOLUS Sodium Chloride 0.9% [Sodium Chloride] 1,000 ml MEDS 07/28/20 09:55 Discontinued IV BOLUS imiquimod MEDS 07/29/20 09:00 Active 1 applic TP DAILY RESUSCITATION STATUS Routine OTHERS 07/28/20 10:35 Ordered CHEST, 1V AP ONLY Stat RADS 07/28/20 09:11 Completed Medications Generic Name Dose Route Start Last Admin Trade Name Freq PRN Reason Stop Dose Admin Albuterol Sulfate 2 puff 07/28/20 14:00 Albuterol Sulfate (Ventolin Hfa) 18 Gm 1 Puff With Spacer IH RTQID LAURY Azithromycin 500 mg 07/29/20 09:00 Azithromycin 250 Mg Tablet PO 07/30/20 10:00 DAILY [facility] Hydrochlorothiazide 25 mg 07/29/20 09:00 Hydrochlorothiazide 25 Mg Tablet PO DAILY [facility] Sodium Chloride 1,000 mls @ 125 mls/hr 07/28/20 11:00 07/28/20 10:54 Sodium Chloride IV 125 mls/hr .Q8H LAURY Administration CEFTRIAXONE/D5W 1 GM PREMIX 1 gm in 50 mls @ 75 mls/hr 07/29/20 09:00 Rocephin 1 Gm/50 Ml D5w IV 07/30/20 10:00 DAILY [facility] Ibuprofen 800 mg 07/28/20 10:49 Ibuprofen 400 Mg Tablet PO TID PRN Pain Insulin Glargine 90 unit 07/28/20 21:00 Insulin Glargine,Hum.Rec.Anlog 100 Units/Ml SUBCUT BEDTIME [facility] Insulin Human Regular 0 unit 07/28/20 10:40 Insulin Regular, Human 100 Unit/Ml (3ml) Vial SUBCUT PRN PRN Hyperglycemia Protocol Ipratropium [place] 2 puff 07/28/20 14:00 Ipratropium [place] 12.9 Gm Hfa Inhaler Per Puff With Spacer IH RTQID [facility] Lisinopril 40 mg 07/29/20 09:00 Lisinopril 40 Mg Tablet PO DAILY [facility] Metformin HCl 1,000 mg 07/28/20 17:00 Metformin Hcl 500 Mg Tablet PO BIDWM [facility] Non-Formulary Medication 1 applic 07/29/20 09:00 Imiquimod TP DAILY [facility] Sodium Chloride 1 syr 07/28/20 08:10 0.9% Sodium Chloride 10 Ml Disp.Syrin IVF PRN PRN To flush IV Discontinued Medications Generic Name Dose Route Start Last Admin Trade Name Freq PRN Reason Stop Dose Admin Albuterol Sulfate 2 puff 07/28/20 10:08 07/28/20 10:36 Albuterol Sulfate (Ventolin Hfa) 18 Gm 1 Puff With Spacer IH 07/28/20 10:09 2 puff ONCE ONE Administration Albuterol Sulfate 2 puff 07/28/20 11:00 07/28/20 11:06 Albuterol Sulfate (Ventolin Hfa) 18 Gm 1 Puff With Spacer IH Not Given Q6H [facility] Azithromycin 500 mg 07/28/20 10:08 07/28/20 10:27 Azithromycin 250 Mg Tablet PO 07/28/20 10:09 500 mg ONCE ONE Administration Ceftriaxone Sodium 1 gm 07/28/20 09:55 07/28/20 10:27 Ceftriaxone 1 Gm Vial 1 Gm Vial IM 07/28/20 09:56 1 gm ONCE ONE Administration Clonidine 0.2 mg 07/28/20 08:24 07/28/20 08:47 Clonidine Hcl 0.1 Mg Tablet PO 07/28/20 08:25 Not Given ONCE ONE Fluconazole 150 mg 07/28/20 10:45 07/28/20 10:53 Fluconazole 150 Mg Tablet PO 07/28/20 10:46 150 mg ONCE ONE Administration Sodium Chloride 1,000 mls @ 1,000 mls/hr 07/28/20 08:10 07/28/20 08:43 Sodium Chloride IV 07/28/20 09:09 1,000 mls/hr BOLUS STA Administration Sodium Chloride 1,000 mls @ 1,000 mls/hr 07/28/20 09:55 07/28/20 10:27 Sodium Chloride IV 07/28/20 10:54 1,000 mls/hr BOLUS STA Administration Insulin Human Regular 19 unit 07/28/20 08:22 07/28/20 08:40 Insulin Regular, Human 100 Unit/Ml (3ml) Vial 0.1 unit/kg (19 unit) 07/28/20 08:23 19 unit IVP Administration ONCE STA Ipratropium [place] 2 puff 07/28/20 10:08 07/28/20 10:38 Ipratropium [place] 12.9 Gm Hfa Inhaler Per Puff With Spacer IH 07/28/20 10:09 2 puff ONCE ONE Administration Ipratropium [place] 2 puff 07/28/20 12:00 Ipratropium [place] 12.9 Gm Hfa Inhaler Per Puff With Spacer IH RTQ6H [facility] Lidocaine HCl 2.1 ml 07/28/20 09:55 07/28/20 10:27 Lidocaine Hcl/Pf 1% 5 Ml Vial IM 07/28/20 09:56 2.1 ml ONCE STA Administration IMAGING: IMPRESSION: Questionable central peribronchial thickening bilaterally, which suggests airways infection/inflammation. No consolidation. Assessment (1) COPD exacerbation: Status: Acute Code(s): J44.1 - Chronic obstructive pulmonary disease with (acute) exacerbation SNOMED Code(s): 404581292 (2) Candidiasis of penis: Status: Acute Code(s): B37.42 - Candidal balanitis SNOMED Code(s): 103049206 (3) Elevated lactic acid level: Status: Acute Code(s): R79.89 - Other specified abnormal findings of blood chemistry SNOMED Code(s): 7050761 (4) Hypoxia: Status: Acute Code(s): R09.02 - Hypoxemia SNOMED Code(s): 375682081 (5) Uncontrolled diabetes mellitus: Status: Acute Code(s): E11.65 - Type 2 diabetes mellitus with hyperglycemia SNOMED Code(s): 31402583 (6) Asthma: Status: None Code(s): J45.909 - Unspecified asthma, uncomplicated SNOMED Code(s): 219659616 (7) Mixed hyperlipidemia: Status: Acute Code(s): E78.2 - Mixed hyperlipidemia SNOMED Code(s): 470170412 (8) Leukocytosis: Status: Acute Code(s): D72.829 - Elevated white blood cell count, unspecified SNOMED Code(s): 316871283 Plan Plan: COPD/Asthma Exacerbation with Leukocytosis, Hypoxia and Elevated Lactic Acid Level: Suspect acute bronchitis with possibility of COPD exacerbation by history and exam. We reviewed smoking history. Smoking cessation and tobacco avoidance highly encouraged today (both active and passive). We reviewed GOLD criteria. Gold defines exacerbation of COPD as acute event leading to worsening of respiratory symptoms with 3 cardinal features: increased cough freq/severity, sputum production volume/quality, worsened Dyspnea. Patient has 3/3 features of this. Risk factors for exacerbations include advancing age, duration of COPD, history of abx use, prev hospitalization within past 12 months, mucus production, comorbidities to include heart disease, CHF, DM, and exposures. Respiratory infections are the most likely trigger in up to 70% of cases to include viral processes such as Rhino (warmer months), bobo, adeno, parainfluenza (cooler months), allergic process, viral/bacterial pneumonia. Studies have shown benefit to bronchodilators (grade 1B) and show reduced time to resolution of cough. Anticholinergic agents are often used in combination as studies show enhanced bronchodilation beyond that seen by either agent alone. Caution advised if any history of BPH or similar in male patients. Systemic glucocorticoids have been shown to have beneficial effect. Recommendations include dosing steroid equivalent to prednisone 40 mg daily x 5 days. However today his sugars are out of control and I want to control sugars a bit before hitting him hard with steroids. Inhaled GC are of minimal benefit in acute exacerbation, but should not be stopped. This may be a good idea as outpatient. We discussed that studies suggest use of abx is controversial but should be considered if patient has 2-3/3 cardinal features. Previously considered CRP >20 but this was not significant. These are recommended to be avoided for simple bronchitis. The patient/family voiced understanding. Common abx include doxycycline, FQ, 3rd gen Cephalosporin with or without macrolide. Discussed pros and cons of steroid use both injectable and oral forms. Discussed home use of inhaler and provided education on inhaler usage today. F/U in 1-2 weeks PRN if not improving. - Admit obs - telemetry - Albuterol q 4 hours - Ipratropium QID - Labs am CBC/CMP f/u with labs in am. - A1C in am as none in last 30 days. - Continue current abx Azithromycin 500 daily x 3 days - Continue current abx rocephin in hospital, will cover with cefdinir 300mg PO BID to complete 5 days. - Tobacco avoidance d/w patient. - DVT prophy - Pneumonia vaccine encouraged if not done in last 5 years. - Mucinex can be of benefit R/B/A d/w patient. - Allergy recommendations discussed. - Handwashing discussed/encouraged - IV fluids NS 125ml/hour. Uncontrolled IDDM: Chronic Diabetes. Hyperglycemia, non compliance with regimen. I will increase his basal insulin from 90 units at night to 100 units. We will use sliding scale insulin and consider adjusting up tomorrow based on 24 hours of total insulin needs. We need to titrate medications to attain better glucose control. Reviewed need for outpatient blood glucose logs. Requested to bring to each future visit. No a1c in last 90 days. Last one was 11.25 on 04/09/20. Metformin of ?benefit at that time with A1C 11.25. Needs more insulin. We have reviewed medications today. Discussed SE. Reviewed pneumonia vaccine guidelines. Any tobacco should be avoided. R/B/A to statins d/w patient. Discussed moderate to high potency should be used depending on ASCVD risk score. We reviewed current status of nephropathy, Retinopathy, Neuropathy. Foot health reviewed and recommended foot evaluation with each OV. Discussed need to f/u with optometry/ ophthalmology annually to eval for DM nephropathy. Reviewed most recent A1C. Recommend q 3 month monitoring as an outpatient until stable then q 4-6 after that. Average goal for most patients is <7% for a1c. However, some patients may benefit from <8% and even still some with reduced life expectancy no A1C goal may be recommended. Discussed typical goals for this patient based on age/medical problems/Accord trial data and recent ACP recommendations. Discussed Hyper/hypoglycemia. Reviewed s/sx of each. Discussed ASA, discussed neville-I/ARB, discussed statins. - Goal BP <140/90 - Moderate to High potency statin d/w patient based on ACC/AHA - Benefits of metformin/Jardiance/farxiga d/w patient. Should not use in DM 1. - Good foot health discussed, appropriate shoes encouraged. - Monitor blood sugars as encouraged and bring log to future meetings. - Weight control discussed with patient. Initial Goal for all patient is BMI <30 and for most patients <60 yr old Goal BMI 19-24.9. - Work on regular exercise and diet to keep BMI in appropriate range with initial goal <30. Exercise can help with glycemic control. - Most recent labs reviewed with patient: New labs ordered as appropriate. (see orders) - Referral to Diabetic Education department as an outpatient - Meds as listed Reviewed R/B/A and SE of listed agents. *Lantus to 100 units qhs *Novolog in hospital per slidng scale. Morbid Obesity BMI 64.4: Federal guidelines recommend that people under the age of 65 should have a BMI of 18.5 -24.9 and people age 65 and older should have a BMI of 23-30. Morbid obesity is defined as >100 lb overweight or BMI >40. The patient BMI is outside the recommended range and we recommended/discussed today to utilize a diet/exercise program to get back into the appropriate range. Today we encouraged roughly a 1 lb per week weight loss with initial goal of 5% weight loss. The initial step is to document everything that is consumed into a food diary. Studies have shown that patients can lose up to 2x the weight by keeping track of foods. We discussed BEE today and discussed reasonable goal to realize weight loss. Discussed if eating out for a meal, consider cutting food in half and placing into to-go container. Individually portion any foods coming into the home based on package. Consider using smaller plates. Portion plates reviewed and discussed with patient. Consider drinking 12 oz of water 30 minutes before meal as way to suppress appetite. Cut back on soft drinks/juices. Discussed 1 can of regular soft drink has roughly 150-170 Calories per day. Increase exercise as able. It is recommended to try to exercise minimum 10 minutes 5 days per week. The goal over the next 2-4 weeks is to walk 30 minutes per day 5 days per week at pace difficult to hold conversation. Medications that may provide some benefit to weight loss include metformin, topamax, phentermine, Qsymia,Belviq (lorcaserin), Contrave (Buproprion/naltrexone) and a few others for Binge eating. Also discussed some of the FAD diets and recommended general portion reduction instead of special dietary changes. Reviewed several of the diabetic medications that have secondary benefits of weight loss. Apps that may be of benefit include [employer], Lose it. Healthier choices included fruits/grains/nuts instead of processed food.Offered referral to batterboard setter and bariatrics. Tobacco use: Tobacco Cessation discussed today for 2 minutes. We reviewed lifestyle choices and discussed quitting. Ready to quit status discussed. The risks and hazards of continued tobacco abuse were discussed with the patient today and total tobacco cessation as recommended. It was clearly and unambiguously explained that continued tobacco usage will adversely affect overall morbidity and mortality of the patient. Patient was informed that tobacco use can lead to numerous cancers, worsening of cardiovascular and pulmonary systems and that lung damage is often permanent and irreversible. I advised the patient to inform me if any further assistance is requested, as we can offer counseling services, nicotine replacement inhaled, patch, lozenge, gum, or prescription medications to include Chantix or Wellbutrin for assistance. I will reassess the interest in tobacco cessation at the next and all subsequent visits. - Patient declined patches in hospital. DVT Prophy: Despite BMI >60 we will use lovenox 40mg for prophylaxis dosing. - 40mg subcutaneous GI prophy: None Non Compliant: I encouraged the patient in unambiguous language to consider the disease process and the treatment options offered. Treatments are designed to improve problems or to reduce bad outcomes and sometimes even . Discussed to take meds as recommended. If issues please call or return to office to discuss. If there are yoder issues, contact clinic. If you cannot get to appt, we will get a 30 day supply to allow you to make it to office. Not taking meds, not following through with labs, not following through with specialist evaluation can lead to worsening condition, worse outcomes and possibly . If your insurance will not pay for a test/med/lab/etc., this does not mean that you do not need it. We may need to find other avenues to include small pay for the item. Patient voiced understanding. Discussed letters may be sent out to patients exhibiting non complaint behavior, discussing the importance of following medical recommendations. - Make sure not to run out of meds. Disposition: At this time patient did not meet SIRS criteria and has e/o hyperglycemia, leukocytosis and COPD exacerbation/asthma exacerbation. total time today 72 minutes face to face, talking with ER doctor, nursing, review labs, imaging, patient discussion. Not including documentation. Total estimated length of stay is 24-48 hours. F/U with patient in am room 106.
[2020-07-28] MEDS ORDERED: ATROVENT HFA INHALER (PER PUFF-WITH SPACER) IH SCH (12:00)
[2020-07-28] MEDS: VENTOLIN HFA (PER PUFF-WITH SPACER) IH SCH ×2 (14:07→20:00)
[2020-07-28] MEDS: ATROVENT HFA INHALER (PER PUFF-WITH SPACER) IH SCH ×2 (14:08→20:10)
[2020-07-28] MEDS: LOTRIMIN TP SCH ×2 (14:19→20:38)
[2020-07-28] MEDS: LOVENOX SUBCUT SCH (14:20)
[2020-07-28] MEDS: GLUCOPHAGE PO SCH (17:44)
[2020-07-28] MEDS: HUMULIN R SUBCUT PRN ×2 (18:00→20:42)
[2020-07-28] MEDS ORDERED: LANTUS SUBCUT SCH ×2 (21:00)
[2020-07-29] MEDS: ATROVENT HFA INHALER (PER PUFF-WITH SPACER) IH SCH ×2 (04:50→10:35)
[2020-07-29] MEDS: VENTOLIN HFA (PER PUFF-WITH SPACER) IH SCH ×2 (04:50→10:35)
[2020-07-29] MEDS: SODIUM CHLORIDE 1,000 ML IV SCH (05:05)
[2020-07-29 05:14] LABS: BASOPHILS # (AUTO) 0.1 K/uL (0-0.2); BASOPHILS % (AUTO) 0.5 % (0.0-3.0); EOSINOPHILS # (AUTO) 0.2 K/ul (0.0-0.7); EOSINOPHILS % (AUTO) 2.2 % (0.0-7.0); HEMATOCRIT 46.6 % (42.0-52.0); HEMOGLOBIN 15.1 g/dl (14.0-18.0); IMMATURE GRANULOCYTE % (AUTO) 0.2 % (0.0-5.0); LYMPHOCYTES # (AUTO) 2.9 K/uL (0.60-3.4); LYMPHOCYTES % (AUTO) 28.3 (10.0-50.0); MEAN CORPUSCULAR HEMOGLOBIN 26.4 pg (27.0-31.0); MEAN CORPUSCULAR HGB CONC 32.4 (31.8-35.4); MEAN CORPUSCULAR VOLUME 81.5 fl (80.0-94.0); MONOCYTES # (AUTO) 0.5 K/uL (0.4-2.0); MONOCYTES % (AUTO) 4.6 (0-10); NEUTROPHILS # (AUTO) 6.5 K/ul (2.0-6.9); NEUTROPHILS % (AUTO) 64.2 % (42.2-75.2); PLATELET COUNT 263 10^3/uL (140-440); RDW COEFFICIENT OF VARIATION 13.3 % (11.6-14.8); RED BLOOD COUNT 5.72 10^6/ul (4.70-6.10); WHITE BLOOD COUNT 10.17 K/ul (4.2-10.2)
[2020-07-29 05:36] LABS: ALANINE AMINOTRANSFERASE 63.6 U/L (0-50); ALBUMIN 3.74 g/dL (3.5-5.0); ASPARTATE AMINO TRANSFERASE 44.5 U/L (17-59); BILIRUBIN,TOTAL 0.44 mg/dL (0.2-1.3); BLOOD UREA NITROGEN 9.5 mg/dL (9-20); CALCIUM 8.51 mg/dL (8.4-10.2); CARBON DIOXIDE 27.2 mmol/L (22-30.0); CHLORIDE 99.7 mmol/L (98-107); CREATININE 0.36 mg/dL (0.60-1.10); GLUCOSE 318.6 mg/dL (74-106); POTASSIUM 4.37 mmol/L (3.5-5.1); SODIUM 133.3 mmol/L (134.5-145); TOTAL PROTEIN 7.55 g/dL (6.3-8.2)
[2020-07-29] MEDS: HUMULIN R SUBCUT PRN (06:07)
[2020-07-29] MEDS ORDERED: ZITHROMAX PO SCH (09:00)
[2020-07-29] MEDS ORDERED: NON-FORMULARY MEDICATION (Imiquimod 5 % cream in packet) TP SCH (09:00)
[2020-07-29] MEDS ORDERED: ZESTRIL PO SCH (09:00)
[2020-07-29] MEDS ORDERED: HYDROCHLOROTHIAZIDE PO SCH (09:00)
[2020-07-29] MEDS ORDERED: ROCEPHIN 1 GM/50 ML D5W 1 GM/50 ML BAG IV SCH (09:00)
[2020-07-29] MEDS ORDERED: ZITHROMAX 500 MG in SODIUM CHLORIDE 250 ML IV SCH (09:00)
[2020-07-29] MEDS: LOVENOX SUBCUT SCH (09:10)
[2020-07-29] MEDS: GLUCOPHAGE PO SCH (09:10)
[2020-07-29] MEDS: LOTRIMIN TP SCH (09:10)
[2020-07-29 09:51] VITALS: BP 124/68; TEMP 97.7
--- NOTE | 2020-07-29 12:51 | PCM.DC ---
Final Diagnosis: Hyperglycemia COPD Exacerbation/Asthma w/ Hypoxia Candidiasis Penis Morbid Obesity BMI 64.4 Uncontrolled diabetes Mixed hyperlipidemia Leukocytosis (1) COPD exacerbation: Status: Acute Code(s): J44.1 - Chronic obstructive pulmonary disease with (acute) exacerbation SNOMED Code(s): 686036566 (2) Candidiasis of penis: Status: Acute Code(s): B37.42 - Candidal balanitis SNOMED Code(s): 157193932 (3) Elevated lactic acid level: Status: Acute Code(s): R79.89 - Other specified abnormal findings of blood chemistry SNOMED Code(s): 0790354 (4) Hypoxia: Status: Acute Code(s): R09.02 - Hypoxemia SNOMED Code(s): 992616380 (5) Uncontrolled diabetes mellitus: Status: Acute Code(s): E11.65 - Type 2 diabetes mellitus with hyperglycemia SNOMED Code(s): 70193416 (6) Asthma: Status: None Code(s): J45.909 - Unspecified asthma, uncomplicated SNOMED Code(s): 414508029 (7) Mixed hyperlipidemia: Status: Acute Code(s): E78.2 - Mixed hyperlipidemia SNOMED Code(s): 477603308 (8) Leukocytosis: Status: Acute Code(s): D72.829 - Elevated white blood cell count, unspecified SNOMED Code(s): 165521535 Reason for Hospitalization: Hyperglycemia, Bronchitis/hypoxia and leukocytosis Prognosis at Discharge: Good. Back to baseline state. Blood glucose remained elevated but improved. Hypoxia improved. Did not qualify for oxygen. Completed 2/5 days of antibiotics (2/3 azithromycin 500mg, 2/5 cephalosporin). Condition at Discharge: Back to baseline state. Patient ready to go home. Maximized health through hospitalization. He is ready to go home. Health delaney condition improved, breathing improved. Medications at Discharge: Ambulatory Orders Medication Instructions Recorded Blood Glucose Test #30 strip 10/25/18 blood-glucose meter #1 ea 10/25/18 lancets 33 gauge See Rx Instructions .ROUTE 05/22/19 .COMPLEX #100 each albuterol sulfate 90 mcg/actuation 2 puff IH Q4-6H PRN #18 gm 07/04/19 aerosol inhaler hydrochlorothiazide 25 mg tablet 25 mg PO QDAY #90 tab 12/19/19 ibuprofen 800 mg tablet 800 mg PO TID PRN #90 tab 04/09/20 lisinopril 40 mg tablet 40 mg PO QDAY #90 tab 04/09/20 pen needle, diabetic 29 gauge x #100 each 05/04/20 1/2" blood sugar diagnostic #200 ea 05/11/20 lancets 33 gauge #100 each 05/11/20 metformin 1,000 mg tablet 1,000 mg PO BID #60 tab 05/11/20 imiquimod 1 applic TOPICAL DAILY 07/28/20 Lantus Solostar U-100 Insulin 110 unit SUBCUT nightly 30 Days 07/29/20 #30 ml azithromycin 500 mg PO ONCE #2 tab 07/29/20 cefdinir 300 mg PO BID 3 Days #6 cap 07/29/20 clotrimazole 1 applic TOPICAL BID 7 Days #90 g 07/29/20 fluconazole 150 mg PO ONCE #1 tab 07/29/20 insulin lispro [Humalog KwikPen See Rx Instructions .ROUTE 07/29/20 Insulin] .COMPLEX #15 ml varenicline [Chantix Starting See Rx Instructions .ROUTE 07/29/20 Month Box] .COMPLEX #53 ea Lab/Diagnostics: Laboratory Last Values WBC 10.17 K/ul (4.2-10.2) 07/29/20 04:47 RBC 5.72 10^6/ul (4.70-6.10) 07/29/20 04:47 Hgb 15.1 g/dl (14.0-18.0) 07/29/20 04:47 Hct 46.6 % (42.0-52.0) 07/29/20 04:47 MCV 81.5 fl (80.0-94.0) 07/29/20 04:47 MCH 26.4 pg (27.0-31.0) L 07/29/20 04:47 MCHC 32.4 (31.8-35.4) 07/29/20 04:47 RDW Coeff of Heather 13.3 % (11.6-14.8) 07/29/20 04:47 Plt Count 263 10^3/uL (140-440) 07/29/20 04:47 Immature Gran % (Auto) 0.2 % (0.0-5.0) 07/29/20 04:47 Neut % (Auto) 64.2 % (42.2-75.2) 07/29/20 04:47 Lymph % (Auto) 28.3 (10.0-50.0) 07/29/20 04:47 Bryan % (Auto) 4.6 (0-10) 07/29/20 04:47 Eos % (Auto) 2.2 % (0.0-7.0) 07/29/20 04:47 Baso % (Auto) 0.5 % (0.0-3.0) 07/29/20 04:47 Neut # (Auto) 6.5 K/ul (2.0-6.9) 07/29/20 04:47 Lymph # (Auto) 2.9 K/uL (0.60-3.4) 07/29/20 04:47 Bryan # (Auto) 0.5 K/uL (0.4-2.0) 07/29/20 04:47 Eos # (Auto) 0.2 K/ul (0.0-0.7) 07/29/20 04:47 Baso # (Auto) 0.1 K/uL (0-0.2) 07/29/20 04:47 Immature Gran # (Auto) 0.0 (0.0-1.0) 07/29/20 04:47 Sodium 133.3 mmol/L (134.5-145) L 07/29/20 04:47 Potassium 4.37 mmol/L (3.5-5.1) 07/29/20 04:47 Chloride 99.7 mmol/L (98-107) 07/29/20 04:47 Carbon Dioxide 27.2 mmol/L (22-30.0) 07/29/20 04:47 Anion Gap 10.77 07/29/20 04:47 BUN 9.5 mg/dL (9-20) 07/29/20 04:47 Creatinine 0.36 mg/dL (0.60-1.10) L 07/29/20 04:47 Estimated GFR (MDRD) 273.00 mL/min 07/29/20 04:47 BUN/Creatinine Ratio 26.38 07/29/20 04:47 Glucose 318.6 mg/dL (74-106) H D 07/29/20 04:47 Hemoglobin A1c 13.47 (4.0-6.0) H D 07/29/20 04:47 Lactic Acid 3.61 mmol/L (0.7-2.1) H 07/28/20 08:32 Calcium 8.51 mg/dL (8.4-10.2) 07/29/20 04:47 Total Bilirubin 0.44 mg/dL (0.2-1.3) 07/29/20 04:47 AST 44.5 U/L (17-59) 07/29/20 04:47 ALT 63.6 U/L (0-50) H 07/29/20 04:47 Alkaline Phosphatase 89.0 U/L (38-126) 07/29/20 04:47 Troponin I < 0.012 ng/ml (0.0000-0.120) 07/28/20 08:24 Total Protein 7.55 g/dL (6.3-8.2) 07/29/20 04:47 Albumin 3.74 g/dL (3.5-5.0) 07/29/20 04:47 Globulin 3.81 07/29/20 04:47 Albumin/Globulin Ratio 0.98 07/29/20 04:47 Urine Color Yellow (YELLOW) 07/28/20 08:10 Urine Clarity Clear (CLEAR) 07/28/20 08:10 Urine pH 6.0 (5-9) 07/28/20 08:10 Ur Specific [place] 1.020 (1.005-1.030) 07/28/20 08:10 Urine Protein 1+ (NEGATIVE) H 07/28/20 08:10 Urine Glucose (UA) 2+ (NEGATIVE) H 07/28/20 08:10 Urine Ketones Negative (NEGATIVE) 07/28/20 08:10 Urine Blood Trace-intact (NEGATIVE) H 07/28/20 08:10 Urine Nitrite Negative (NEGATIVE) 07/28/20 08:10 Urine Bilirubin Negative (NEGATIVE) 07/28/20 08:10 Urine Urobilinogen 0.2 (0.2) 07/28/20 08:10 Ur Leukocyte Esterase Negative (NEGATIVE) 07/28/20 08:10 Urine Microscopic RBC 0-2 (0-2) 07/28/20 08:10 Ur Squamous Epith Cells 2-5 (0-5) 07/28/20 08:10 Urine Opiates Screen Negative (NEGATIVE) 07/28/20 08:10 Ur Oxycodone Screen Negative (NEGATIVE) 07/28/20 08:10 Urine Methadone Screen Negative (NEGATIVE) 07/28/20 08:10 Ur Propoxyphene Screen Negative (NEGATIVE) 07/28/20 08:10 Ur Barbiturates Screen Negative (NEGATIVE) 07/28/20 08:10 U Tricyclic Antidepress Negative (NEGATIVE) 07/28/20 08:10 Ur Phencyclidine Scrn Negative (NEGATIVE) 07/28/20 08:10 Ur Amphetamine Screen Negative (NEGATIVE) 07/28/20 08:10 U Methamphetamines Scrn Negative (NEGATIVE) 07/28/20 08:10 U Benzodiazepines Scrn Positive (NEGATIVE) H 07/28/20 08:10 Urine Cocaine Screen Negative (NEGATIVE) 07/28/20 08:10 U Cannabinoids Screen Positive (NEGATIVE) H 07/28/20 08:10 Plasma/Serum Alcohol < 10.0 mg/dL (0.0-50.0) 07/28/20 08:24 Acetone, Qual None (NONE) 07/28/20 08:24 Adenovirus (PCR) Not detected (NOT DETECT) 07/28/20 10:03 B. pertussis DNA (PCR) Not detected (NOT DETECT) 07/28/20 10:03 B.parapertussis DNA PCR Not detected (NOT DETECT) 07/28/20 10:03 C. pneumoniae DNA (PCR) Not detected (NOT DETECT) 07/28/20 10:03 Coronavirus OC43 (PCR) Not detected (NOT DETECT) 07/28/20 10:03 Coronavirus HKU1 (PCR) Not detected (NOT DETECT) 07/28/20 10:03 Coronavirus 229E (PCR) Not detected (NOT DETECT) 07/28/20 10:03 Coronavirus NL63 (PCR) Not detected (NOT DETECT) 07/28/20 10:03 Human Metapneumovir PCR Not detected (NOT DETECT) 07/28/20 10:03 Influenza Type A (PCR) Not detected (NOT DETECT) 07/28/20 10:03 Influenza B (RT-PCR) Not detected (NOT DETECT) 07/28/20 10:03 M. pneumoniae (PCR) Not detected (NOT DETECT) 07/28/20 10:03 Parainfluenza 1 (PCR) Not detected (NOT DETECT) 07/28/20 10:03 Parainfluenza 2 (PCR) Not detected (NOT DETECT) 07/28/20 10:03 Parainfluenza 3 (PCR) Not detected (NOT DETECT) 07/28/20 10:03 Parainfluenza 4 (PCR) Not detected (NOT DETECT) 07/28/20 10:03 RSV (PCR) Not detected (NOT DETECT) 07/28/20 10:03 Entero/Rhino (PCR) Not detected (NOT DETECT) 07/28/20 10:03 SARS-CoV-2 (PCR) Not detected (NOT DETECT) 07/28/20 10:03 Education Provided to Patient and Family: 1. Antibiotics: Azithromycin, Cefdinir 2. Smoking Cessation 3. Chantix Education 4. Weight loss education 5. Diabetes Education: - Long acting insulin - Short acting insulin - Hyperglycemia - Hypoglycemia - Sick day insulin take 50% of long acting and if NPO do not use any meal times insulin. 6. Maintain f/u with clinic visits and special visits. Follow-ups: 1. Dr. Abundio Camejo 11 am. 08/03/20. Discharge Disposition: Home Hospital Course: 35 yo male presented to ED 07/28/20 at 0756 with c/o elevated BG x 2 weeks. Walked into ED w/o limitations. Vitals temp 96.8, pulse 90, rr 20, bp 163/106 and O2 92% on RA. Repeat vitals at 0844 BP 126/83 and normal. ER noted that in addition to glucose, he has had some respiratory issues as well. Constant blood sugars elevated, mild to moderate, no acute fever/chills/SOA/Chest pain. He has reported penile rash that has been worsening over the last 1 week. No agg/ameliorating factors. increased urination noted. No recent abx use. Ddx considered asthma/copd exacerbation/CAP/SARS-COVID/Bronchitis and lesser DKA. ROS reviewed from ED provider, pertinent + include nausea, burning in epigastric and abdominal region, penile yeast. PFSH reviewed with history of arthritis, asthma, c ellulitis, elevated cholesterol, HTN, DM2 IDDM, extreme obesity with BMI 64.4. Current every day smoker of tobacco and marijuana. May consider quitting in future. 4 children. Works, some recent travel to [place] for job. Exam in ED noted some rhonchi. Penile rash noted. Balanitis present. Labs showed WBC 12.20, hgb 15.9, hct 47.7, plt 293. Sodium 133.9, K+ 4.18, CL 95.5, co2 30.2, bun 11.8, cr 0.49, glucose 537.5. Lymphocytes elevated. Else normal differential on CBC. UA showed SG 1.020, protien 1+, glucose 2+, ketones negative, blood trace, micro rbc 0-2, squam 2-5. UDS + for Benzo and can nabinoids. Corrected tjbmgb=228 Sarmiento/144 Joceline. Calcium was 9.26, AST 48.6, alt 53.9, Alk phos normal 104.1. Trop <0.012, alb 4.22. ETOH negative. Acetone negative. Lactic acid is elevated at 3.61. Biofire returned handy negative. BC were obtained. SIRS criteria were technically not met with only abnl finding was the WBC >12. I questioned the temp, it was recorded as inaccurate and they were rechecking. Repeat BP was reviewed and okay. Dr. Riggins contacted me this am and we agreed to observation. He noted that the patient has not been taking insulin. He has no hypoxia now. O2 in ED was reported at >96%. CXR showed IMPRESSION: Questionable central peribronchial thickening bilaterally, which suggests airways infection/inflammation. No consolidation. HD #2 35 yo male HD #2, Abx day #2/3 (azithromycin 500mg) and rocephin 1gram daily (will d/c on cefdinir to complete 5 day course). Lovenox 40mg subcutaneous for DVT prophy. IV is running NS 125ml/hour. He has had intake in last 24 hours 3748ml and output 1650ml with #2 voids recorded. Producing at least 0.5ml/kg/hour output. Accuchecks 07/28 to present 323/369/318. These are improving. He was increased to lantus 100 units at night. Will d/c today with 110 units at night and with a correctional factor/meal time insulin. Close f/u as outpatient would be warranted. Labs this am show WBC has resolved to normal from 12.20 yesterday to 10.17 today. Hgb 15.1 today and stable. HCT stable at 46.6 and plt 263. Normal differential. Chemistry showed sodium 133.3 (hyperglycemia corrected to 139 Joceline formula). Potassium stable at 4.37, cl 99.7, bun 9.5, cr 0.36. Glucose 318.6, a1c 13.47. Calcium 8.51, ast 44.5, alt 63.6. Overnight obs narratives reviewed. 07/29 1999 resting HS snack Tele NSR 88. Fluids 125ml/hr running. 2L o2 95%. 1357-1425 resting well tele NSR @84- 87. 2300 unchanged tele NSR 80bpm, fluids infusing. 07/29 0000 IV fluids infusing NSR 96bpm. 0100 resting Tele NSR 88. 0200 watching TV no c/o. NSR 92bpm. [address] 101bpm. 0500 rested well through night w/o complain pain. Requested breakfast (cereal). Tele NSR 99. 0600 awake in bed nsr 93. No c/o. We will increase his lantus to 110 units today. Increase his Humalog at home from 5 units TID plus sliding scale to 7 units TID plus same sliding scale. Each Sunday I would like him to bring in fasting sugar log and meal sugar log so that we can see how many total units of insulin he is using. He needs to keep track of the # of units so we can help him to create a better system. He may actually benefit from dexcom and or Keke machine. and We will have him continue using albuterol/ipratropium at home. Some of his problem is habitus limiting. Vital Signs - 24 hr 07/28/20 18:00 07/28/20 20:00 07/28/20 20:52 Temperature 97.9 F 98.9 F Pulse Rate 98 H 94 H Respiratory Rate 24 18 Blood Pressure 140/75 140/91 H O2 Sat by Pulse Oximetry 95 95 94 L 07/29/20 01:49 07/29/20 05:05 07/29/20 05:35 Temperature 97.4 F L 97.6 F Pulse Rate 94 H 91 H Respiratory Rate 18 16 Blood Pressure 121/70 135/83 O2 Sat by Pulse Oximetry 98 96 95 07/29/20 09:50 Temperature 97.7 F Pulse Rate 93 H Respiratory Rate 20 Blood Pressure 124/68 O2 Sat by Pulse Oximetry 95 REVIEW OF SYMPTOMS: (Positives bolded) General: weight loss, fever, chills, night sweats, fatigue, appetite loss HEENT: blurry vision, eye pain, eye discharge, dry eyes, decreased vision, sore throat tinnitus, bloody nose, hearin gloss, sinus pain/pressure, ear pain/pressure. Respiratory: shortness of breath, cough, hemoptysis, wheezing, pleurisy, Cardiovascular: chest pain, PND, palpitation, edema, orthopnea, syncope, swelling of extremities Gastro: Nausea, vomiting, diarrhea, hematemesis, abdominal pain, constipation Genito: hematuria, dysuria, glycosuria, hesitancy, frequency, incontinence, Penis rash Musckelo: Arthralgia, myalgia, muscle weakness, joint swelling, NSAID use Skin: rash, pruritis, sores, nail changes, skin thickening, change in wart/mole, itching, rash, new lesions, pruritus, nail changes Neuro: Migraine, numbness, ataxia, tremor, vertigo, weakness, memory loss, Irritability, dizziness Endocrine: excessive thirst, polyuria, cold intolerance, heat intolerance, goiter, Hyperglycemia Psychiatric: depression, anxiety, anti-depressants, alcohol abuse, drug abuse, insomnia, change in sleep pattern and mood changes Heme/lymph: easy bruising, bleeding gums, blood clots, swollen glands, lymphedema, Allergic/immune: allergic rhinitis, hay fever, asthma, hives Constitutional: Appearance-No acute distress, Consistent with stated age. Orientation- Oriented x 3, alertGait-Normal pace, normal arm movement. Build and Nutrition-[morbid obesity] General- Patient is pleasant and cooperative with the interview and exam. Integumentary: General-No rashes, ulcers or lesions. Palpation- Normal skin moisture/turgor. Skin is warm to touch, appropriate. Capillary refill is normal bilateral Upper and lower extremity. No rash in the under skin follds of abdomen, axilla or under breast tissue. Scar along the anterior blunt hy perpigmented nodule/nummular lesion. Chronic. Head/Neck: Head- normocephalic and atraumatic. Neck- without visible/palpable lumps or pulsations. Palpation- No bony tenderness about head/neck along frontal, occipital, temporal, parietal, mastoid, jawline, zygoma, orbit or any other location. NO temporal artery tenderness. No TMJ tenderness. Neck Supple. Thyroid-No thyromegaly, no nodules Eye: Bilaterally PERRLA, EOMI. No discharge. Upper and lower eyelids are normal. Sclera/conjunctiva normal without discharge. Cornea is normal and clear. Lens is normal. Eyeball appears normal. No ciliary flushing, no conjunctival injection. ENMT: Nose and sinus- No sinus tenderness along frontal/maxillary region. External appearance normal and midline. Nares- bilateral quiet airflow, no discharge. Nasal mucosa- No bleeding noted and no ulcerations observed. [place], moist. Turbinates non boggy. Lips- normal color, moist without cracks/lesions Oral Cavity/Palate- hard/soft palate intact without lesions, oral mucosa pink and moist. Tongue normal midline. Oropharynx- no pharyngeal erythema, Uvula midline. No post nasal drip. No exudate. Salivary glands- Non tender to palpation CHEST/LUNG: Inspection- symmetric chest wall no pectus deformity. Normal effort, no distress, no use of accessory muscles. Palpation- nontender sternum, ribline. No abnormal pulsations. Auscultation- Breath sounds coarse throughout all lung andrade. Tracheal sounds, bronchial sounds overlying sternum, Bronchovessicular sounds between scapulae posteriorly, vessicular breath sounds heard throughout periphery coarse and diminished. Adventitious sounds- Scattered wheezes, no rales, Scattered rhonchi. Shallow respiration, decreased effort 3 step Pulse ox negative. CARDIOVASCULAR: Carotid artery- normal, no bruits or abnormal pulsations. Jugular vein- no pulsations. Palpation/Percussion- Normal PMI, no palpable thrill Auscultation- Regular rate and rhythm. No murmur noted in sitting, supine positions. Extremities- no digital clubbing, cyanosis, edema, increased warmth. ABDOMEN: Inspection- normal and no visible pulsations. Normal contour. Auscultation- Bowel sounds normal, no abdominal bruits. Palpation/Percussion- soft, non-tender, no rebound tenderness, no rigidity (guarding), no jar tenderness, no masses. Liver-no hepatomegaly, Spleen no splenomegaly, Hernias- none. Rectal not examined. Peripheral Vascular: Upper extremity Left- Normal temperature with pink nailbeds and no ulcerations. Upper extremity Right- Normal temperature with pink nailbeds and no ulcerations. Lower extremity- Normal temperature with pink nailbeds and no ulcerations. DP pulses 2+ bilaterally. Pedal hair intact. Normal capillary refill. Edema- No edema. Musculoskeletal: Generalized-No generalized swelling or edema of extremities, no digital clubbing or cyanosis, neurovascularly intact all four extremities. : Balanitis. Scrotum without abnl findings. Testicles non tender symmetrcial. White thick discharge in skin folds. Penis is retracted. Prominent suprapubic fat pad. No rash in abdominal fold. Neurological: General- Moves all 4 extremities symmetrically. Symmetrical face and body posture. Neuropsych: Oriented- Person, place, time. (AAOx3), Mood/affect- normal and congruent. Able to articulate well. Speech-Normal speech, normal rate, normal tone, normal use of language, volume and coherence. Thought content- normal with ability to perform basic computations and apply abstract thought/reason. Associations- intact, no SI/HI, no hallucinations, delusions, obsessions. Judgment/insight- Appropriate. Memory-Recall intact, remote and recent memory intact. Knowledge- Age appropriate fund of knowledge, concentration and attention span normal. Discharge Plan 1. Discharge home today. 2. Lantus: Increase to 110 units at bedtime. 3. Novolog 7 units with meals + correctional. 4. Finish 3rd day of azithromycin to completed 3/3 days. 5. Finish 3 more days of cefdinir 300mg twice daily #6 sent to pharmacy 6. Add chantix. R/B/A to meds d/w patient, SE reviewed, handout offered regarding medications listed. 7. tobacco cessation encouraged. 8. F/U with me in clinic sunday08/03/20 at 11 am. 33 minutes spent on discharge today. Seen at 0720 this am and then again at 1230. Patient d/c home with instructions above. Bring log to me next time that we meet Sunday08/03/20. Patient has been optimized through this hospital stay. He is ready for d/c. When tot go to ED d/w patient. When to f/u with me d/w patient. Do not miss medication.
== END 2020-07-29 13:03 | disposition home or self-care (01) ==
LOC: MEDSURG A 07:48 → ED 07:48 → MEDSURG A 11:47
PROVIDERS: ADMIT Family Medicine; ATTEND Family Medicine
DX: R79.89 Other specified abnormal findings of blood chemistry; E11.65 Type 2 diabetes mellitus with hyperglycemia; J44.9 Chronic obstructive pulmonary disease, unspecified; J45.909 Unspecified asthma, uncomplicated; R09.02 Hypoxemia; B37.42 Candidal balanitis; Z20.822 Contact with and (suspected) exposure to COVID-19; D72.829 Elevated white blood cell count, unspecified; J44.1 Chronic obstructive pulmonary disease with (acute) exacerbation; E78.2 Mixed hyperlipidemia

== ENCOUNTER 2021-12-27 07:16 | Observation (INO) ==
--- NOTE | 2021-12-27 07:33 | ED.PDOC ---
General ED Provider: Dr. DANNA BONILLA MD Chief Complaint: Abdominal Pain Stated Complaint: mild lower abdominal cramps for 3 days, no NVD, no fever, no injury, +urinary frequency, sharp burning urination, hx dm and htn and obesity and noncompliance, pt refused pain med Time Seen by Provider: 12/27/21 07:28 Mode of Arrival: Walk-In Information Source: Patient Primary Care Provider: ARNAV MARADIAGA MD Nursing and Triage Documentation Reviewed and Agree: Yes Does patient meet sepsis criteria?: No System Inflammatory Response Syndrome: Not Applicable Sepsis Protocol: For patient's 13 years and over: Temp is 96.8 and below OR 101 and greater Pulse >90 BPM Resp >20/minute Acutely Altered Mental Status Are patient's symptoms suggestive of a new infection, such as: -Pneumonia -Skin, Soft Tissue -Endocarditis -UTI -Bone, Joint Infection -Implantable Device -Acute Abdominal Infection -Wound Infection -Meningitis -Blood Stream Catheter Infection -Unknown Review of Systems Review Of Systems Constitutional: Denies Fever Eyes: Denies Vision change Ears, Nose, Mouth, Throat: Denies Mouth pain Respiratory: Denies Short of air Cardiac: Denies Chest pain GI: Reports Abdominal pain; Denies Vomiting : Reports Dysuria and Frequency Musculoskeletal: Denies Back pain Skin: Denies Rash Neurological: Denies Cognitive dysfunction All Other Systems: Other [facility] Medical History Anterolisthesis Arthritis Asthma Condyloma acuminatum DM2 (diabetes mellitus, type 2) Facet arthropathy, lumbar Genital warts Hypertension Lumbar stenosis Mixed hyperlipidemia Morbid obesity with BMI of 60.0-69.9, adult Smokes 1 pack of cigarettes per day Type 2 diabetes mellitus Family History Mother Cancer 19 CHILD Asthma Social History Smoking and tobacco status: Current every day smoker Tobacco type: cigarettes Years smoked: 25 Tobacco: How many years used: 24 Quit status: considering quitting Second hand smoke exposure: Yes Alcohol intake: current Alcohol intake frequency: a few times a month Alcohol type: beer Substance use type: marijuana Mary/pentecostalism: NONE Special mary needs: No Agree to transfusion: Yes Adopted: No Caregiver/support person: No Foster care: No Household members: significant other, family and children Housing: house Lives independently: Yes Daycare: no daycare Number of children: 4 Number of grandchildren: 0 Highest education level completed: Associate degree: occupational, technical, vocational program Financial difficulty paying for basics: not very hard service: No Current occupational status: employed 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 Current occupational exposures/hazards: No Pets and animals: Yes Leisure activites: other History of recent travel: Yes (out of state) Sexually active: Yes Do you think of yourself as: straight/heterosexual Current gender identity: male Seatbelt use: always Helmet use: No 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 Water heater temperature set < 120 degrees: Yes Working smoke detector in home: Yes Fire extinguisher in home: No Carbon monoxide detector in home: Yes Firearms in home: No Surgical History No history of previous surgery Status post tonsillectomy Physical Exam Physical Exam Appearance: Reports Well-appearing Ill-appearing: None Pain Distress: Mild Eyes: Reports Conjunctiva clear ENT: Reports Oropharynx normal Neck: Supple Respiratory: Reports Airway patent Cardiovascular: Reports RRR GI/: Reports Soft and Tender (no rebound) Musculoskeletal: Reports ROM intact Skin: Reports Warm and Dry Neurological: Reports Alert and Oriented Psychiatric: Reports Affect appropriate Interpretation Radiology Interpretation Radiology Interpretation By: Radiologist Exam Interpreted: CT Scan Xray Comments: +diverticulitis, no free air Critical Care Note Critical Care Note Total Critical Care Time (mins): 0 Course Course Hematology/Chemistry: 12/27/21 07:40 12/27/21 07:40 Orders, Labs, Meds: Lab Review 12/27/21 12/27/21 12/27/21 07:26 07:40 07:40 WBC 13.78 H RBC 6.00 Hgb 17.0 Hct 49.7 MCV 82.8 MCH 28.3 MCHC 34.2 RDW Coeff of Heather 12.1 Plt Count 280 Immature Gran % (Auto) 0.2 Neut % (Auto) 59.9 Lymph % (Auto) 31.8 [place] % (Auto) 6.5 Eos % (Auto) 1.2 Baso % (Auto) 0.4 Neut # (Auto) 8.3 H Lymph # (Auto) 4.4 H [place] # (Auto) 0.9 Eos # (Auto) 0.2 Baso # (Auto) 0.1 Immature Gran # (Auto) 0.0 Sodium 134.2 L Potassium 3.98 Chloride 96.9 L Carbon Dioxide 28.4 Anion Gap 12.88 BUN 8.4 L Creatinine 0.48 L Estimated GFR (MDRD) 195.00 BUN/Creatinine Ratio 17.50 Glucose 476.8 H Lactic Acid Calcium 9.41 Total Bilirubin 0.57 AST 26.4 ALT 34.4 Alkaline Phosphatase 91.3 Total Protein 8.42 H Albumin 4.37 Globulin 4.05 Albumin/Globulin Ratio 1.07 Urine Color Yellow Urine Clarity Clear Urine pH 5.5 Ur Specific [place] 1.010 Urine Protein Negative Urine Glucose (UA) 2+ H Urine Ketones Negative Urine Blood Negative Urine Nitrite Negative Urine Bilirubin Negative Urine Urobilinogen 0.2 Ur Leukocyte Esterase Negative 12/27/21 07:40 WBC RBC Hgb Hct MCV MCH MCHC RDW Coeff of Heather Plt Count Immature Gran % (Auto) Neut % (Auto) Lymph % (Auto) [place] % (Auto) Eos % (Auto) Baso % (Auto) Neut # (Auto) Lymph # (Auto) [place] # (Auto) Eos # (Auto) Baso # (Auto) Immature Gran # (Auto) Sodium Potassium Chloride Carbon Dioxide Anion Gap BUN Creatinine Estimated GFR (MDRD) BUN/Creatinine Ratio Glucose Lactic Acid 1.94 Calcium Total Bilirubin AST ALT Alkaline Phosphatase Total Protein Albumin Globulin Albumin/Globulin Ratio Urine Color Urine Clarity Urine pH Ur Specific [place] Urine Protein Urine Glucose (UA) Urine Ketones Urine Blood Urine Nitrite Urine Bilirubin Urine Urobilinogen Ur Leukocyte Esterase Orders Category Date Time Status BLOOD CULTURE Stat LAB 12/27/21 08:32 Ordered CBC W/ AUTO DIFF Stat LAB 12/27/21 07:40 Completed CMP [COMPREHENSIVE METABOLIC PANEL] Stat LAB 12/27/21 07:40 Completed LACTIC ACID Stat LAB 12/27/21 07:40 Completed SARS COV-2 RNA RAPID PATO Stat LAB 12/27/21 Ordered URINALYSIS C & S IF INDICATED Stat LAB 12/27/21 07:26 Completed 500 mg IV Q6hr Isaías MEDS 12/27/21 12:00 Ordered Metronidazole/Sodium Chloride [Flagyl 500 mg/100 ml] 500 mg in 100 ml IV Q6HR 750 mg IV Daily Isaías MEDS 12/27/21 09:00 Ordered Levofloxacin/D5w [Levaquin 750 mg/150 ml D5w] 750 mg in 150 ml IV DAILY Insulin Regular, Human [Humulin R] MEDS 12/27/21 08:02 Discontinued 5 unit SUBCUT ONCE ONE CT ABDOMEN/PELVIS WO CONTRAST Stat RADS 12/27/21 07:30 Completed Medications Generic Name Dose Route Start Last Admin Trade Name Freq PRN Reason Stop Dose Admin Levofloxacin/Dextrose 750 mg in 150 mls @ 100 mls/hr 12/27/21 09:00 Levaquin 750 Mg/150 Ml D5w IV 12/30/21 08:59 DAILY ISAÍAS Metronidazole 500 mg in 100 mls @ 100 mls/hr 12/27/21 12:00 Flagyl 500 Mg/100 Ml IV 12/30/21 11:59 Q6HR ISAÍAS Discontinued Medications Generic Name Dose Route Start Last Admin Trade Name Freq PRN Reason Stop Dose Admin Insulin Human Regular 5 unit 12/27/21 08:02 12/27/21 08:07 Insulin Regular, Human 100 Unit/Ml (3ml) Vial SUBCUT 12/27/21 08:03 5 unit ONCE ONE Administration Vital Signs: Temp Pulse Resp BP Pulse Ox 12/27/21 07:16 98.3 F 90 18 142/95 H 97 Discharge Plan Discharge Patient Disposition: ADMITTED INPATIENT Discharge Problem: Diverticulitis, Hyperglycemia Prescriptions: No Action No Reported Medications 0 Qty: 0 Did you review [place] INTERNATIONAL GUEST COORDINATOR?: No ED Provider: DANNA BONILLA Condition: Stable Physician Progress Note: hospitalist full admit for iv antibiotics and blood sugar control []
[2021-12-27 07:46] LABS: BASOPHILS # (AUTO) 0.1 K/uL (0-0.2); BASOPHILS % (AUTO) 0.4 % (0.0-3.0); EOSINOPHILS # (AUTO) 0.2 K/ul (0.0-0.7); EOSINOPHILS % (AUTO) 1.2 % (0.0-7.0); HEMATOCRIT 49.7 % (42.0-52.0); IMMATURE GRANULOCYTE % (AUTO) 0.2 % (0.0-5.0); LYMPHOCYTES # (AUTO) 4.4 K/uL (0.60-3.4); LYMPHOCYTES % (AUTO) 31.8 (10.0-50.0); MEAN CORPUSCULAR HEMOGLOBIN 28.3 pg (27.0-31.0); MEAN CORPUSCULAR HGB CONC 34.2 (31.8-35.4); MEAN CORPUSCULAR VOLUME 82.8 fl (80.0-94.0); MONOCYTES # (AUTO) 0.9 K/uL (0.4-2.0); MONOCYTES % (AUTO) 6.5 (0-10); NEUTROPHILS # (AUTO) 8.3 K/ul (2.0-6.9); NEUTROPHILS % (AUTO) 59.9 % (42.2-75.2); PLATELET COUNT 280 10^3/uL (140-440); RDW COEFFICIENT OF VARIATION 12.1 % (11.6-14.8); WHITE BLOOD COUNT 13.78 K/ul (4.2-10.2)
[2021-12-27 07:52] LABS: BILIRUBIN,URINE Negative (NEGATIVE); CLARITY,URINE Clear (CLEAR); COLOR,URINE Yellow (YELLOW); GLUCOSE, URINE (UA) 2+ (NEGATIVE); KETONES,URINE Negative (NEGATIVE); LEUKOCYTE ESTERASE ,URINE Negative (NEGATIVE); NITRITE,URINE Negative (NEGATIVE); PH,URINE 5.5 (5-9); PROTEIN,URINE Negative (NEGATIVE); URINE, BLOOD Negative (NEGATIVE); UROBILINOGEN,URINE 0.2 (0.2)
[2021-12-27 07:58] LABS: ALANINE AMINOTRANSFERASE 34.4 U/L (0-50); ALBUMIN 4.37 g/dL (3.5-5.0); ALKALINE PHOSPHATASE 91.3 U/L (38-126); ASPARTATE AMINO TRANSFERASE 26.4 U/L (17-59); BILIRUBIN,TOTAL 0.57 mg/dL (0.2-1.3); BLOOD UREA NITROGEN 8.4 mg/dL (9-20); CALCIUM 9.41 mg/dL (8.4-10.2); CARBON DIOXIDE 28.4 mmol/L (22-30.0); CHLORIDE 96.9 mmol/L (98-107); CREATININE 0.48 mg/dL (0.60-1.10); GLUCOSE 476.8 mg/dL (74-106); POTASSIUM 3.98 mmol/L (3.5-5.1); SODIUM 134.2 mmol/L (134.5-145); TOTAL PROTEIN 8.42 g/dL (6.3-8.2)
[2021-12-27] MEDS ORDERED: HUMULIN R SUBCUT ONE (08:02)
--- NOTE | 2021-12-27 08:11 | CT ---
EXAM: CT Abdomen without contrast. CT Pelvis without contrast. HISTORY: Abdominal pain. COMPARISON: None. TECHNIQUE: Multiple axial images of the abdomen and pelvis were obtained without intravenous contras t. Images were reformatted in the sagittal and coronal plane. FINDINGS: Please note that evaluation of the abdominal and pelvic structures is limited due to lack of intravenous contrast. The lung bases are clear. There are bilateral pars defects at L5 with anterolisthesis of L5 on S1 by 0.8 cm. Severe loss of di sc height with endplate sclerosis and osteophyte formation. Mild degenerative changes throughout the spine otherwise. Liver enlarged and low density. The gallbladder, pancreas, spleen, and adrenal glands demonstrate no acute abnormality. There is a 1.5 cm homogeneous fat density left adrenal nodule on axial image 32. No calcified renal stones, hydronephrosis or perinephric inflammation detected. No ureteral dilatati on or ureteral calculi are seen. Stomach and small bowel are normal. Moderate wall thickening of the distal sigmoid colon centered ar ound a diverticulum, which is located to the right of midline in the pelvis. Surrounding edema. No bowel obstruction, perforation or abscess. Appendix normal. Tiny fatty umbilical hernia. Bladder normal. No focal prostate abnormality. Aorta normal in calibe r. Nonenlarged mesenteric and retroperitoneal lymph nodes present IMPRESSION: 1. Moderate sigmoid diverticulitis. No complication. 2. Hepatomegaly with fatty infiltration. 3. Benign left adrenal myelolipoma. 4. Bilateral spondylolysis with spondylolisthesis and degenerative disc disease at L5-S1. All CT scans are performed using dose optimization techniques as appropriate to the performed exam an d include at least one of the following: Automated exposure control, adjustment of the mA and/or kV according t o size, and the use of iterative reconstruction technique.
[2021-12-27] MEDS ORDERED: ZOFRAN 4 MG/2 ML IVP PRN (08:37)
[2021-12-27] MEDS ORDERED: TYLENOL PO PRN (08:37)
[2021-12-27] MEDS: SODIUM CHLORIDE 1,000 ML IV SCH (09:24)
[2021-12-27] MEDS: LEVAQUIN 750 MG/150 ML D5W 750 MG/150 ML BAG IV SCH (09:28)
[2021-12-27] MEDS: MORPHINE 2 MG/ML SYRINGE IVP PRN ×4 (10:08→23:02)
[2021-12-27 10:15] VITALS: BMI 49.9
[2021-12-27] MEDS: HUMULIN R SUBCUT PRN ×3 (11:15→22:59)
[2021-12-27] MEDS: FLAGYL 500 MG/100 ML 500 MG/100 ML BAG IV SCH ×2 (11:48→17:37)
[2021-12-28] MEDS: FLAGYL 500 MG/100 ML 500 MG/100 ML BAG IV SCH ×5 (00:30→23:19)
[2021-12-28] MEDS: SODIUM CHLORIDE 1,000 ML IV SCH ×2 (01:11→22:03)
[2021-12-28] MEDS: MORPHINE 2 MG/ML SYRINGE IVP PRN ×2 (04:39→09:48)
[2021-12-28 05:12] LABS: BASOPHILS # (AUTO) 0.1 K/uL (0-0.2); BASOPHILS % (AUTO) 0.4 % (0.0-3.0); EOSINOPHILS # (AUTO) 0.2 K/ul (0.0-0.7); EOSINOPHILS % (AUTO) 1.4 % (0.0-7.0); HEMATOCRIT 47.1 % (42.0-52.0); HEMOGLOBIN 15.8 g/dl (14.0-18.0); IMMATURE GRANULOCYTE # (AUTO) 0.1 (0.0-1.0); IMMATURE GRANULOCYTE % (AUTO) 0.3 % (0.0-5.0); LYMPHOCYTES % (AUTO) 27.3 (10.0-50.0); MEAN CORPUSCULAR HEMOGLOBIN 28.1 pg (27.0-31.0); MEAN CORPUSCULAR HGB CONC 33.5 (31.8-35.4); MEAN CORPUSCULAR VOLUME 83.7 fl (80.0-94.0); MONOCYTES # (AUTO) 0.8 K/uL (0.4-2.0); MONOCYTES % (AUTO) 5.8 (0-10); NEUTROPHILS # (AUTO) 9.5 K/ul (2.0-6.9); NEUTROPHILS % (AUTO) 64.8 % (42.2-75.2); PLATELET COUNT 236 10^3/uL (140-440); RDW COEFFICIENT OF VARIATION 12.4 % (11.6-14.8); RED BLOOD COUNT 5.63 10^6/ul (4.70-6.10)
[2021-12-28 05:24] LABS: ALANINE AMINOTRANSFERASE 31.9 U/L (0-50); ALBUMIN 3.77 g/dL (3.5-5.0); ALKALINE PHOSPHATASE 80.1 U/L (38-126); ASPARTATE AMINO TRANSFERASE 25.7 U/L (17-59); BILIRUBIN,TOTAL 0.81 mg/dL (0.2-1.3); BLOOD UREA NITROGEN 12.2 mg/dL (9-20); CALCIUM 8.59 mg/dL (8.4-10.2); CARBON DIOXIDE 32.4 mmol/L (22-30.0); CHLORIDE 99.9 mmol/L (98-107); CREATININE 0.52 mg/dL (0.60-1.10); GLUCOSE 204.2 mg/dL (74-106); POTASSIUM 3.61 mmol/L (3.5-5.1); SODIUM 135.7 mmol/L (134.5-145); TOTAL PROTEIN 7.34 g/dL (6.3-8.2)
[2021-12-28] MEDS: HUMULIN R SUBCUT PRN ×4 (05:40→22:00)
[2021-12-28] MEDS: LEVAQUIN 750 MG/150 ML D5W 750 MG/150 ML BAG IV SCH (09:20)
[2021-12-28] MEDS: DILAUDID 1 MG/ML SYRINGE IVP PRN ×3 (13:10→22:18)
[2021-12-28] MEDS: NICODERM 21 MG TD SCH (13:51)
--- NOTE | 2021-12-28 21:32 | PCM.PROG ---
Date Seen by Provider: 12/28/21 Time Seen by Provider: 09:00 Subjective: CC - Abdominal pain, getting better. Objective: Vitals: T=96.9 F, P=91, R=18, EJ=825/84, SPO2=96 HEENT: [WNL] Neck: [supple] Lungs: [clear] CVS: [RRR] Abdomen: [soft, TTP LLQ, improving] Extremities: [intact] Neurological: [intact] Skin: [WNL] Lab/Tests/Diagnostic Imaging: [See report. ] (1) Diverticulitis large intestine: Status: Acute Code(s): K57.32 - Diverticulitis of large intestine without perforation or abscess without bleeding SNOMED Code(s): 9653097 Assessment: On levaquin and flagyl, clinically some better, WBC still mildly elevated. (2) Hyperglycemia: Status: Acute Code(s): R73.9 - Hyperglycemia, unspecified SNOMED Code(s): 89340135 Assessment: Diabetic, on insulin, moderate control. Plan: Continue current abx, CBC in am, if WBC not improved, consider changing abx. Continue insulin regimen.
[2021-12-29] MEDS: DILAUDID 1 MG/ML SYRINGE IVP PRN ×4 (02:45→20:29)
[2021-12-29] MEDS: FLAGYL 500 MG/100 ML 500 MG/100 ML BAG IV SCH ×4 (05:37→23:55)
[2021-12-29 05:42] LABS: BASOPHILS # (AUTO) 0.1 K/uL (0-0.2); BASOPHILS % (AUTO) 0.5 % (0.0-3.0); EOSINOPHILS # (AUTO) 0.2 K/ul (0.0-0.7); EOSINOPHILS % (AUTO) 2.3 % (0.0-7.0); HEMATOCRIT 45.7 % (42.0-52.0); HEMOGLOBIN 15.7 g/dl (14.0-18.0); IMMATURE GRANULOCYTE % (AUTO) 0.2 % (0.0-5.0); LYMPHOCYTES # (AUTO) 3.4 K/uL (0.60-3.4); LYMPHOCYTES % (AUTO) 33.9 (10.0-50.0); MEAN CORPUSCULAR HEMOGLOBIN 28.9 pg (27.0-31.0); MEAN CORPUSCULAR HGB CONC 34.4 (31.8-35.4); MONOCYTES # (AUTO) 0.7 K/uL (0.4-2.0); MONOCYTES % (AUTO) 6.7 (0-10); NEUTROPHILS # (AUTO) 5.6 K/ul (2.0-6.9); NEUTROPHILS % (AUTO) 56.4 % (42.2-75.2); PLATELET COUNT 234 10^3/uL (140-440); RDW COEFFICIENT OF VARIATION 12.3 % (11.6-14.8); RED BLOOD COUNT 5.44 10^6/ul (4.70-6.10); WHITE BLOOD COUNT 9.95 K/ul (4.2-10.2)
[2021-12-29 06:04] LABS: ALANINE AMINOTRANSFERASE 29.1 U/L (0-50); ALBUMIN 3.69 g/dL (3.5-5.0); ALKALINE PHOSPHATASE 77.5 U/L (38-126); ASPARTATE AMINO TRANSFERASE 23.9 U/L (17-59); BILIRUBIN,TOTAL 0.68 mg/dL (0.2-1.3); BLOOD UREA NITROGEN 9.7 mg/dL (9-20); CALCIUM 8.64 mg/dL (8.4-10.2); CARBON DIOXIDE 31.5 mmol/L (22-30.0); CHLORIDE 99.8 mmol/L (98-107); CREATININE 0.48 mg/dL (0.60-1.10); POTASSIUM 3.69 mmol/L (3.5-5.1); TOTAL PROTEIN 7.27 g/dL (6.3-8.2)
[2021-12-29] MEDS: HUMULIN R SUBCUT PRN ×4 (06:25→21:30)
--- NOTE | 2021-12-29 08:24 | PCM.PROG ---
Date Seen by Provider: 12/29/21 Time Seen by Provider: 08:23 Subjective: hes feeling better now--denies any abd paIn and nursing staff has no concerns Objective: Vitals: T=97.5 F, P=83, R=18, JW=519/98, SPO2=96 HEENT: [] Neck: [] Lungs: [clear] CVS: [rrr] Abdomen: [soft nt bs--no rebound or guarding] Extremities: [] Neurological: [intact] Skin: [] Lab/Tests/Diagnostic Imaging: [] (1) Diverticulitis large intestine: Status: Acute Code(s): K57.32 - Diverticulitis of large intestine without perforation or abscess withou t bleeding SNOMED Code(s): 5169792 (2) Hyperglycemia: Status: Acute Code(s): R73.9 - Hyperglycemia, unspecified SNOMED Code(s): 69367281 Plan: he is feeling better=---will continue iv antbx and check labs in am
[2021-12-29] MEDS: NICODERM 21 MG TD SCH (10:02)
[2021-12-29] MEDS: LEVAQUIN 750 MG/150 ML D5W 750 MG/150 ML BAG IV SCH (10:06)
[2021-12-29] MEDS: SODIUM CHLORIDE 1,000 ML IV SCH (13:34)
[2021-12-30 05:09] LABS: BASOPHILS # (AUTO) 0.1 K/uL (0-0.2); BASOPHILS % (AUTO) 0.7 % (0.0-3.0); EOSINOPHILS # (AUTO) 0.2 K/ul (0.0-0.7); EOSINOPHILS % (AUTO) 2.5 % (0.0-7.0); HEMATOCRIT 45.9 % (42.0-52.0); HEMOGLOBIN 15.9 g/dl (14.0-18.0); IMMATURE GRANULOCYTE % (AUTO) 0.1 % (0.0-5.0); LYMPHOCYTES # (AUTO) 3.4 K/uL (0.60-3.4); LYMPHOCYTES % (AUTO) 35.3 (10.0-50.0); MEAN CORPUSCULAR HEMOGLOBIN 28.9 pg (27.0-31.0); MEAN CORPUSCULAR HGB CONC 34.6 (31.8-35.4); MEAN CORPUSCULAR VOLUME 83.5 fl (80.0-94.0); MONOCYTES # (AUTO) 0.5 K/uL (0.4-2.0); MONOCYTES % (AUTO) 5.6 (0-10); NEUTROPHILS # (AUTO) 5.4 K/ul (2.0-6.9); NEUTROPHILS % (AUTO) 55.8 % (42.2-75.2); PLATELET COUNT 252 10^3/uL (140-440); RDW COEFFICIENT OF VARIATION 12.2 % (11.6-14.8); WHITE BLOOD COUNT 9.67 K/ul (4.2-10.2)
[2021-12-30] MEDS: FLAGYL 500 MG/100 ML 500 MG/100 ML BAG IV SCH (05:09)
[2021-12-30] MEDS: DILAUDID 1 MG/ML SYRINGE IVP PRN (05:11)
[2021-12-30 05:18] VITALS: BP 163/94; TEMP 97.8
[2021-12-30 05:21] LABS: BLOOD UREA NITROGEN 11.2 mg/dL (9-20); CALCIUM 9.05 mg/dL (8.4-10.2); CARBON DIOXIDE 30.2 mmol/L (22-30.0); CREATININE 0.47 mg/dL (0.60-1.10); GLUCOSE 317.4 mg/dL (74-106); POTASSIUM 4.41 mmol/L (3.5-5.1); SODIUM 135.8 mmol/L (134.5-145)
[2021-12-30] MEDS: HUMULIN R SUBCUT PRN (05:48)
[2021-12-30] MEDS: LEVAQUIN 750 MG/150 ML D5W 750 MG/150 ML BAG IV SCH (08:29)
[2021-12-30] MEDS: NICODERM 21 MG TD SCH (08:29)
--- NOTE | 2021-12-30 09:36 | PCM.PROG ---
Date Seen by Provider: 12/30/21 Time Seen by Provider: 08:50 Subjective: Feeling much better. Less pain. Tolerating PO intake. Having bowel movements. Objective: Vitals: T=97.8 F, P=98, R=20, RP=683/94, SPO2=97 Patient is alert and appears well. HEENT: []Oral mucosa moist. Neck: [] Lungs: [] Chest clear and BS equal. CVS: []RRR. No edema. Abdomen: []Protruberant, soft and with minimal tenderness. Extremities: [] Neurological: []Alert and in NAD. Moves all extremities. Skin: [] Lab/Tests/Diagnostic Imaging: [] (1) Diverticulitis large intestine: Status: Acute Code(s): K57.32 - Diverticulitis of large intestine without perforation or abscess without bleeding SNOMED Code(s): 3331711 Assessment: improved (2) Hyperglycemia: Status: Acute Code(s): R73.9 - Hyperglycemia, unspecified SNOMED Code(s): 97654785 Plan: Patient will be discharged on oral antibiotics.
--- NOTE | 2021-12-30 09:40 | PCM.DC ---
Final Diagnosis: acute diverticulitis diabetes mellitus hyperglycemia Physical Exam Appearance: Well-appearing, No pain distress, Well-nourished and Obese Ill-appearing: None Pain Distress: None Eyes: Not Examined ENT: Nose normal and Oropharynx normal Neck: Supple Respiratory: Airway patent, Breath sounds clear and Breath sounds equal Cardiovascular: RRR, No rub and No murmur GI/: Soft, Nontender, No masses, Bowel sounds normal and No Organomegaly Musculoskeletal: Normal strength, ROM intact and No edema Skin: Warm, Dry and Normal color Neurological: Motor intact, Alert and Oriented Psychiatric: Affect appropriate and Mood appropriate (1) Diverticulitis large intestine: Status: Acute Code(s): K57.32 - Diverticulitis of large intestine without perforation or abscess without bleeding SNOMED Code(s): 4027996 (2) Hyperglycemia: Status: Acute Code(s): R73.9 - Hyperglycemia, unspecified SNOMED Code(s): 28811735 Reason for Hospitalization: acute noncomplicated diverticulitis Prognosis/Condition at Discharge: condition at discharge was good Medications at Discharge: patient discharged on levaquin and flagyl in addition to the same admission medications Education Provided to Patient and Family: diverticulitis diabetes mellitus Follow-ups: Follow up with your primary care provider next week. Discharge Disposition: Home Hospital Course: Patient admitted with acute sigmoid diverticulitis. He was treated with IV flagyl and levaquin. Patient responded well and progressed without incident. Plan: Patient was discharged to home. He was to follow up with his primary care provider next week.
== END 2021-12-30 11:18 | disposition home or self-care (01) ==
LOC: ED 07:16 → MEDSURG A 09:30 → INTOOBSV 09:30 → MEDSURG A 10:02
PROVIDERS: ADMIT Emergency Medicine Emergency Medical Services; ATTEND Surgery
DX: K57.32 Diverticulitis of large intestine without perforation or abscess without bleeding; M13.80 Other specified arthritis, unspecified site; R35.0 Frequency of micturition; Z20.822 Contact with and (suspected) exposure to COVID-19; F17.210 Nicotine dependence, cigarettes, uncomplicated; M43.10 Spondylolisthesis, site unspecified; E11.65 Type 2 diabetes mellitus with hyperglycemia; Z91.14 Patient's other noncompliance with medication regimen; M48.061 Spinal stenosis, lumbar region without neurogenic claudication; J45.909 Unspecified asthma, uncomplicated; R73.9 Hyperglycemia, unspecified; E78.5 Hyperlipidemia, unspecified; E66.9 Obesity, unspecified; R30.9 Painful micturition, unspecified; Z68.44 Body mass index [BMI] 60.0-69.9, adult